=== PATIENT | male | born 1950 | race Caucasian/White ===

== ENCOUNTER 2016-09-20 13:39 | Day surgery (SDC) | payer MEDICARE, BC ==
[2016-09-15 15:36] VITALS: BMI 30.6
[~2016-09-20 13:39] MED LIST: SODIUM CHLORIDE 0.9% 1,000 ML IV SCH
[2016-09-20] MEDS ORDERED: ceFAZolin 2 GM in SODIUM CHLORIDE 0.9% 100 ML IVPB ONE (13:46)
[2016-09-20 14:24] LABS: INR 2.5 (<1.1); Prothrombin Time 23.8 sec (9.0-12.0)
[2016-09-20 14:26] LABS: Basophils % (A) 0 %; CH 33.2; CHCM 37.2; Eosinophils # (A) 0.1 k/uL (0-0.7); Eosinophils % (A) 1 %; HCT 47.6 % (39.0-53.0); HDW 3.05; HGB 16.9 gm/dL (13.0-17.5); Hyperchromasia Slight; Luc # (Auto) 0.25; Luc % (Auto) 3; Lymphocytes # (A) 1.7 k/uL (1.0-4.8); Lymphocytes % (A) 21 %; MCH 31.7 pg (25.0-35.0); MCHC 35.4 g/dL (31.0-37.0); MCV 89.7 fL (80.0-100.0); Monocytes # (A) 0.6 k/uL (0-1.0); Monocytes % (A) 7 %; Neutrophils # (A) 5.4 k/uL (1.3-7.7); Neutrophils % (A) 68 %; RBC 5.31 m/uL (4.30-5.90); RDW 13.9 % (11.5-15.5); WBC (Perox) 7.98
[2016-09-20 14:27] LABS: Anion Gap 17 mmol/L; Blood Urea Nitrogen 25 mg/dL (9-20); Calcium 9.3 mg/dL (8.4-10.2); Carbon Dioxide 23 mmol/L (22-30); Chloride 99 mmol/L (98-107); Glucose 264 mg/dL (74-99); Non-African American GFR(MDRD) >60 (>60 ml/min/1.73 sqM); Potassium 4.3 mmol/L (3.5-5.1); Sodium 139 mmol/L (137-145)
[2016-09-20] MEDS ORDERED: INSULIN LISPRO (humaLOG) 300 UNIT/3 ML VIAL SQ ONE ×2 (14:34→16:57)
[2016-09-20 14:36] LABS: Glucose,Whole Blood 271 mg/dL (75-99)
[2016-09-20] MEDS ORDERED: SODIUM CHLORIDE 0.9% 1,000 ML IV ONE (14:58)
[2016-09-20] MEDS ORDERED: MIDAZOLAM 2 MG/2 ML VIAL ONE (15:01)
[2016-09-20] MEDS ORDERED: fentaNYL (PF) 50 MCG/ML 2 ML AMP ONE (15:01)
[2016-09-20] MEDS ORDERED: PROPOFOL 10 MG/ML 20 ML VIAL IV ONE (15:01)
[2016-09-20] MEDS ORDERED: LIDOCAINE 2% INJ 20 MG/ML SQ ONE (15:38)
[2016-09-20 15:50] LABS: Glucose,Whole Blood 207 mg/dL (75-99)
[2016-09-20] MEDS ORDERED: ACETAMINOPHEN TAB 325 MG TAB PO PRN (16:15)
[2016-09-20 16:37] VITALS: TEMP 98.1
--- NOTE | 2016-09-20 16:47 | PCN ---
DATE OF PROCEDURE: Mr. Ochoa was brought in for an AV junction ablation. He has atrial fibrillation with rapid ventricular response, severe cardiomyopathy and low biventricular pacing percentage is severe heart failure. PROCEDURE #1: ICD was interrogated and reprogrammed to VVI 40 beats per minute, ( ) therapy was turned off, rate response turned off. At the end of the procedure the ICD was then reprogrammed VVIR at 90 beats per minute, operate 130. Rate responsiveness turned on. VT zone detection at 40 beats. VT therapies were reprogrammed at the end of the procedure. Right groin was prepped and draped as per protocol. A long sheath was placed. IV antibiotics were administered. A 4 mm ablation catheter was used to map the His bundle area. Electrical cardioversion was performed, a 360-joule shock. AV node modification was performed. Junctional rhythm was obtained. Escape rhythm with complete heart block was noted at about 35 to 40 beats per minute at the end of the procedure. Successful modification of AV node was performed. The patient soon went back into atrial fibrillation. RESULT: 1. Successful AV junction modification with an escape rate of about 35 to 40 beats per minute. 2. Electrical cardioversion. 3. ICD interrogation with reprogramming pre-procedure. ICD interrogation with reprogramming post-procedure. PLAN: Ventricular pacing rate at 90 beats per minute for the next 2 to 3 weeks and then back to 60 beats per minute. Continue cardiac medications and diabetes management per Dr. Norris.
--- NOTE | 2016-09-20 16:47 | DS ---
DATE OF ADMISSION: 09/20/2016 DATE OF DISCHARGE: Mr. Elgin Ochoa underwent AV node modification successfully. He will be monitored overnight on telemetry. He will be discharged home tomorrow. Blood sugar levels were elevated recently, according to his , and I have called Dr. Norris, who will re-evaluate his diabetes medication regimen. His cardiac medications will remain unchanged upon discharge. He will follow up in the office in about 2 to 3 weeks for device reprogramming.
[2016-09-20 17:02] LABS: Glucose,Whole Blood 213 mg/dL (75-99)
[2016-09-20] MEDS ORDERED: WARFARIN 7.5 MG TAB PO SCH (20:15)
[2016-09-20] MEDS ORDERED: ACETAMINOPHEN IV (For NPO) 1,000 MG in EMPTY BAG 1 BAG IVPB ONE (20:15)
[2016-09-20] MEDS ORDERED: DIGOXIN 125 MCG TAB PO SCH (20:15)
[2016-09-20] MEDS: SACUBITRIL/VALSARTAN 24 MG-26 MG TABLET PO SCH (20:44)
[2016-09-20] MEDS: metFORMIN 850 MG TAB PO SCH (20:44)
[2016-09-20] MEDS: FUROSEMIDE 40 MG TAB PO SCH (20:44)
[2016-09-20 20:59] LABS: Glucose,Whole Blood 256 mg/dL (75-99)
[2016-09-21 00:34] VITALS: RESP 18
[2016-09-21] MEDS ORDERED: PANTOPRAZOLE 40 MG TABLET PO SCH (07:30)
[2016-09-21 08:15] LABS: Glucose,Whole Blood 218 mg/dL (75-99)
[2016-09-21 08:17] VITALS: PULSE 91
[2016-09-21] MEDS ORDERED: SPIRONOLACTONE 25 MG TAB PO SCH (09:00)
[2016-09-21] MEDS ORDERED: METOPROLOL SUCCINATE (ER) 50 MG TAB.ER.24H PO SCH (09:00)
[2016-09-21] MEDS ORDERED: TIMOLOL 0.5% OPHTH DROPS 5 ML BTL LEFT EYE SCH (09:00)
[2016-09-21] MEDS: SACUBITRIL/VALSARTAN 24 MG-26 MG TABLET PO SCH (09:33)
[2016-09-21] MEDS: FUROSEMIDE 40 MG TAB PO SCH (09:33)
[2016-09-21] MEDS: metFORMIN 850 MG TAB PO SCH (09:33)
[2016-09-21 11:54] VITALS: BP 112/78
--- NOTE | 2016-09-21 12:13 | PN ---
Jose is doing well. His groin has healed in. He denies any chest discomfort. No undue shortness of breath. His pulse rate is 90 beats a per minute. He is programmed to a ventricular rate of paced rate of 90 beats a minute. Blood pressure 112/78 mmHg, respirations normal. Heart sounds are normal. Breath sounds are normal. IMPRESSION: 1. Severe cardiomyopathy, nonischemic. 2. Severe heart failure. 3. Status post bi-V ICD. 4. Status post AV junction modification and underlying permanent atrial fibrillation. SUGGEST: Continue current medications. Follow up in the office in about 2 to 3 weeks for pacemaker reprogramming with the pacing rate and diabetes management.
[2016-09-21] MEDS ORDERED: WARFARIN 5 MG TAB PO SCH (18:00)
== END 2016-09-21 12:45 | disposition home or self-care (01) ==
LOC: CATHEP 13:39 → 2CATHESU 16:10 → CATHEP 09-21 12:45
PROVIDERS: ATTEND Internal Medicine Clinical Cardiac Electrophysiology
DX: I42.8 Other cardiomyopathies (principal); I50.22 Chronic systolic (congestive) heart failure; I48.1 Persistent atrial fibrillation; I47.2 Ventricular tachycardia; I45.10 Unspecified right bundle-branch block; I10 Essential (primary) hypertension; E11.9 Type 2 diabetes mellitus without complications; Z95.810 Presence of automatic (implantable) cardiac defibrillator; Z79.01 Long term (current) use of anticoagulants; Z79.84 Long term (current) use of oral hypoglycemic drugs; Z79.899 Other long term (current) drug therapy
CPT/HCPCS: 93650 ×2; 93283 ×2; 94760; 80048; 85025; 85610; C1894; C1769; C1893; C1733; J2001; J2250; J0690; J3010; J0131; J2704; 92960

== ENCOUNTER → 2016-12-24 | Outpatient (CLI) | payer MEDICARE, BC ==
--- NOTE | 2016-12-29 11:51 | P.ARTDOP ---
Arterial Doppler LOWER EXTREMITY ARTERIAL DOPPLER: DATE OF SERVICE: 12/24/2016 Reason for study: Leg pain. Doppler waveforms: Multiphasic bilaterally throughout. Pulse volume recording: Normal configuration. Pressure gradients: None. Ankle-brachial indices: Greater than 1 bilaterally. Toe pressures: 85 on the right, 78 on the left Impression: Normal study.
== END | disposition home or self-care (01) ==
LOC: RADUSWWP 12:10
PROVIDERS: ATTEND Internal Medicine
DX: M79.604 Pain in right leg (principal); M79.605 Pain in left leg
CPT/HCPCS: 93923

== ENCOUNTER → 2019-02-23 | Outpatient (CLI) | payer MEDICARE, BC ==
--- NOTE | 2019-02-23 13:25 | NM ---
EXAMINATION TYPE: NM bone 3 phase DATE OF EXAM: 02/23/2019 COMPARISON: NONE HISTORY: 69-year-old male with left ankle pain for one month. History of left ankle joint replacement in 2015 and left Achilles tendon repair 25 years ago. Technique: Triple phase bone scintigraphy was performed following the injection of 24.7 mCi Tc 99m M DP. Immediate images and 3 hours post injection images acquired. FINDINGS: Flow images show asymmetric hyperemia to the left ankle. Whole images show persistent intense uptake at the level of the ankle especially medially. Delayed images show focal intense tracer activity about the medial aspect of the expected distal tibi a partially marginating an area of photopenia probably relating to some type of prosthesis. IMPRESSION: 1. Three-phase bone scan abnormality centered at the left ankle, especially medially in the expected location of the distal tibia, partially marginating an area of photopenia, likely the patient's ankle prosthesis. 2. Further radiographic evaluation recommended. Underlying prosthetic loosening/infection not exclude d.
== END | disposition home or self-care (01) ==
LOC: RADNMMAIN 07:52
PROVIDERS: ATTEND Orthopaedic Surgery Foot and Ankle Surgery
DX: R93.6 Abnormal findings on diagnostic imaging of limbs (principal); M24.272 Disorder of ligament, left ankle
CPT/HCPCS: 78315; A9503

== ENCOUNTER → 2019-03-15 | Outpatient (CLI) | payer MEDICARE, BC ==
[2019-03-15 07:03] LABS: HCT 44.5 % (39.0-53.0); HGB 15.7 gm/dL (13.0-17.5); MCH 31.9 pg (25.0-35.0); MCHC 35.3 g/dL (31.0-37.0); MCV 90.3 fL (80.0-100.0); Mean Platelet Volume 8.6; Platelet Count 171 k/uL (150-450); RBC 4.93 m/uL (4.30-5.90); RDW 15.5 % (11.5-15.5); WBC 7.5 k/uL (3.8-10.6)
[2019-03-15 07:13] LABS: African American GFR (CKD) >90 (>60 ml/min/1.73 sqM); Blood Urea Nitrogen 34 mg/dL (9-20); C Reactive Protein 7.2 mg/L (<10.0)
[2019-03-15 08:18] LABS: Erythrocyte Sedimentation Rate 2 mm/hr (0-15)
--- NOTE | 2019-03-15 09:17 | CT ---
EXAMINATION TYPE: CT ankle LT wo/w con DATE OF EXAM: 03/15/2019 COMPARISON: Three-phase bone scan 02/23/2019. HISTORY: aftercare following joint replacement surgery CT DLP: 520 mGycm Automated exposure control for dose reduction was used. Three-D reconstructed images performed separately by the technologist on the computer are presented. No plain films at this location are available. CONTRAST: Performed without and with IV Contrast, patient injected with 100 mL of Isovue 300. FINDINGS: Calcification surrounds the proximal and distal Achilles tendon region. There is marked thickening th rough this region. There is a tibial talar prosthetic joint placed. There is some beam hardening artifact at the level o f the prosthesis. On coronal plane images there is a lucency extending from the medial portion of the prosthesis into t he metaphysis of the tibia compatible with a fracture. Example image series 8 image 18. No additional fractures are evident. Suspicious enhancement is not identified. IMPRESSION: 1. THERE APPEARS TO BE A FRACTURE EXTENDING FROM THE MEDIAL PORTION OF THE TIBIAL PROSTHESIS SUPERIOR LY INTO THE METADIAPHYSIS OF THE MEDIAL TIBIA. THIS IS NONDISPLACED ON THIS APPEARS TO CORRESPOND TO A THREE-PHASE BONE SCAN FINDINGS. PLAIN FILM CORRELATION COULD BE PERFORMED. 2. PROSTHESIS APPEARS INTACT WITHOUT SUSPICIOUS LUCENCY ADJACENT TO SUGGEST LOOSENING 3. OLD ACHILLES TENDON INJURY.
== END | disposition home or self-care (01) ==
LOC: RADCTMAIN 06:31
PROVIDERS: ATTEND Orthopaedic Surgery Foot and Ankle Surgery
DX: Z47.1 Aftercare following joint replacement surgery (principal); M24.272 Disorder of ligament, left ankle; Z96.662 Presence of left artificial ankle joint
CPT/HCPCS: 85652; 82565; 84520; 85027; 86140; 36415; 73702; Q9967

== ENCOUNTER 2019-10-25 08:13 | Day surgery (SDC) | payer MEDICARE, BC ==
[2019-10-22 16:00] VITALS: BMI 30.2
[~2019-10-25 08:13] MED LIST changes: +LACTATED RINGERS 1,000 ML IV SCH; +LIDOCAINE 1% 20 ML VIAL (10MG/ML) FOR IV START INTRADERMA PRN; -SODIUM CHLORIDE 0.9% 1,000 ML IV SCH
[2019-10-25 08:53] VITALS: RESP 16; TEMP 97.1
[2019-10-25 08:56] LABS: Glucose,Whole Blood 81 mg/dL (75-99)
[2019-10-25] MEDS ORDERED: DEXTROSE 50% SYRINGE 50 ML IVP ONE ×2 (09:05→09:45)
[2019-10-25 09:50] LABS: Glucose,Whole Blood 76 mg/dL (75-99)
[2019-10-25] MEDS ORDERED: LIDOCAINE 1% INJ 10MG/ML (20 ML MDV) ONE (09:51)
[2019-10-25] MEDS ORDERED: PROPOFOL 10 MG/ML 20 ML VIAL IV ONE (09:51)
[2019-10-25 10:39] LABS: Glucose,Whole Blood 76 mg/dL (75-99)
--- NOTE | 2019-10-25 10:44 | P.PCN ---
Date of Procedure: 10/25/19 Description of Procedure: Brief history: Patient is a pleasant 69-year-old male scheduled for an elective upper endoscopy as well as colonoscopy as a part of evaluation of GERD and rectal bleeding. Patient reports intermittent small amounts of rectal bleeding. He is on omeprazole for treatment of GERD. No family history of colon cancer. He believes last EGD and colonoscopy were approximately 10 years. Procedure performed: Esophagogastroduodenoscopy with biopsy Colonoscopy with polypectomy Estimated blood loss: Minimal. Preoperative diagnosis: GERD, rectal bleed, last colonoscopy approximately 10 years ago per his recollection Anesthesia: MAC Procedure: After informed consent was obtained from the patient was brought into the endoscopy unit and IV sedation was administered by anesthesia under continuous monitoring. Initially upper endoscopy was done. The Olympus GF 190 video endoscope was inserted into the mouth and esophagus intubated without any difficulty and was gradually advanced into the stomach and duodenum and carefully examined. The bulb and second part of the duodenum appeared normal, with biopsies taken. The scope was then withdrawn into the stomach adequately insufflated with air and upon careful examination the antrum and body, cardia and fundus appeared normal, except for some mild erythema in the antrum body suggestive of mild gastritis with biopsies taken. A few diminutive gastric polyps likely representing fundic gland polyps seen and biopsied. The scope was then withdrawn into the esophagus. The GE junction was located at 40 cm to the incisors, small 1 cm hiatal hernia noted. GE junction biopsied. It appeared regular with no erythema erosions or ulcerations. Rest of the esophagus appeared normal. Patient tolerated the procedure well. At this time the patient continued to remain sedation. Initial digital rectal examination was normal. Olympus CF 190 video colonoscope was then inserted into the rectum and gradually advanced to the cecum without any difficulty. Careful examination was performed as the scope was gradually being withdrawn. The prep was excellent. The cecum, ascending colon, transverse colon, descending colon, sigmoid colon and rectum appeared normal. Sessile 3 mm cecal polyp removed with cold snare polypectomy. Retroflexion was performed in the rectum and no lesions were noted, low-grade internal hemorrhoids noted. Patient tolerated the procedure well. Impression: 1. Mild gastritis antrum and body, biopsied. Biopsies of GE junction and duodenum. Small hiatal hernia. Gastric polyps (likely fundic gland polyps) biopsied. 2. Small cecal polyp removed with cold snare. Low-grade internal hemorrhoids. Recommendations: Findings of this examination were discussed with the patient as well as His . Okay to resume the diet. Okay to resume medications including warfarin today. Await pathology from biopsies and polypectomy. Would recommend repeat colonoscopy in 7 years given history of colon polyps.
[2019-10-25 10:46] VITALS: PULSE 69
[2019-10-25 10:57] LABS: Glucose,Whole Blood 75 mg/dL (75-99)
[2019-10-25 10:58] VITALS: BP 116/64
== END 2019-10-25 11:39 | disposition home or self-care (01) ==
LOC: ORWHC2ENDO 08:13
PROVIDERS: ATTEND Internal Medicine
DX: K29.50 Unspecified chronic gastritis without bleeding (principal); K31.7 Polyp of stomach and duodenum; D12.0 Benign neoplasm of cecum; K44.9 Diaphragmatic hernia without obstruction or gangrene; K64.8 Other hemorrhoids; K62.5 Hemorrhage of anus and rectum; I50.9 Heart failure, unspecified; E78.49 Other hyperlipidemia; I48.91 Unspecified atrial fibrillation; K21.9 Gastro-esophageal reflux disease without esophagitis; E11.9 Type 2 diabetes mellitus without complications; Z95.810 Presence of automatic (implantable) cardiac defibrillator; Z96.653 Presence of artificial knee joint, bilateral; Z79.02 Long term (current) use of antithrombotics/antiplatelets; Z79.4 Long term (current) use of insulin; Z79.899 Other long term (current) drug therapy
CPT/HCPCS: 88305; 45385; 43239; J2001; J2704

== ENCOUNTER → 2020-02-21 | Outpatient (CLI) | payer MEDICARE, BC ==
[2020-02-21 14:04] LABS: African American GFR (CKD) >90 (>60 ml/min/1.73 sqM); Anion Gap 12 mmol/L; Blood Urea Nitrogen 28 mg/dL (9-20); Calcium 9.7 mg/dL (8.4-10.2); Carbon Dioxide 22 mmol/L (22-30); Chloride 105 mmol/L (98-107); Cholesterol 228 mg/dL (<200); Glucose 210 mg/dL (74-99); HDL Cholesterol 34 mg/dL (40-60); Non-African American GFR(CKD) 86 (>60 ml/min/1.73 sqM); Potassium 4.6 mmol/L (3.5-5.1); Sodium 139 mmol/L (137-145); Triglycerides 433 mg/dL (<150)
--- NOTE | 2020-02-21 14:59 | CT ---
EXAMINATION TYPE: CT angio chest DATE OF EXAM: 02/21/2020 COMPARISON: NONE HISTORY: ascending aortic aneurysm, abnormal outside echo. CT DLP: 888.4 mGycm. Automated Exposure Control for Dose Reduction was Utilized. CONTRAST: CTA scan of the thorax is performed without and with IV Contrast, patient injected with 100 mL of Iso richa 370, pulmonary embolism protocol. 3-D reconstruction are created on independent workstation and r [employer]. FINDINGS: LUNGS: The lungs are grossly clear, there is no concerning parenchymal mass or nodule identified. T here is no pleural effusion or pneumothorax seen. The tracheobronchial tree is patent. MEDIASTINUM: There is satisfactory enhancement of the central pulmonary arteries. Main pulmonary bill ry measures 2.9 cm in diameter axial image 28. Adjacent ascending aorta measures up to 4.0 cm in diam eter. There is a bovine type arch which is normal variant. No aneurysm in the arch or descending aort a. Mild cardiomegaly with moderate biatrial and mild to moderate left ventricular dilatation. There i s multilead pacemaker/AICD. No pericardial effusion is seen. No suspicious thoracic adenopathy. No ao rtic dissection identified. OTHER: Small degree of bilateral subareolar gynecomastia. Liver is diffusely low dense consistent wit h fatty infiltration on noncontrast CT. Large right-sided lower pole nodule extending to the thyroid isthmus is felt present as there is low density and asymmetric prominence at this level. IMPRESSION: 1. Confirmation of ascending aortic aneurysm up to 4.0 cm. No extension into the arch descending aort a. 2. Cardiomegaly without acute pulmonary process. 3. There is suspected roughly 3 to 4 cm lower pole right thyroid nodule extending into isthmus, follo w-up thyroid ultrasound advised to better evaluate and characterize.
== END | disposition home or self-care (01) ==
LOC: RADCTMAIN 13:21
PROVIDERS: ATTEND Internal Medicine Clinical Cardiac Electrophysiology
DX: I71.2 Thoracic aortic aneurysm, without rupture (principal); I51.7 Cardiomegaly; E03.9 Hypothyroidism, unspecified; I10 Essential (primary) hypertension
CPT/HCPCS: 80061; 80048; 84443; 71275; 36415; Q9967

== ENCOUNTER → 2021-07-31 | Outpatient (CLI) | payer MEDICARE, BC ==
[2021-07-31 14:37] LABS: African American GFR (CKD) >90 (>60 ml/min/1.73 sqM); Blood Urea Nitrogen 25 mg/dL (9-20); Non-African American GFR(CKD) 80 (>60 ml/min/1.73 sqM)
--- NOTE | 2021-07-31 16:23 | CT ---
CT CHEST FOR PULMONARY EMBOLISM. EXAMINATION TYPE: CT angio chest DATE OF EXAM: 07/31/2021 INDICATION: Thoracic aortic aneurysm w/out rupture. Pt not reporting any issues CT DLP: 860.4 mGycm, Automated exposure control for dose reduction was used. CONTRAST: Patient injected with 100 mL of Isovue 370. COMPARISON: 02/21/2020 TECHNIQUE: CT of the chest is performed on a spiral scan at 2 mm thick sections. Study is performed with intravenous contrast timed for evaluation for pulmonary embolism. This will limit additional po rtions of the evaluation. 3-D MIP images reconstructed by the technologist are reviewed on the compu ter in the coronal and sagittal planes. FINDINGS: Ascending thoracic aorta tapers normally. The aortic arch is unremarkable. Descending thoracic aorta is unremarkable. No dissection is evident. No mediastinal or hilar adenopathy enlarged by CT criteria is evident. The ascending aorta diameter at the level of the main pulmonary artery is 4.0 cm. The main pulmonary artery diameter at the bifur cation is 2.9 cm. Lung windows are clear. Limited CT section through the upper abdomen are unremarkable. IMPRESSIONS: 1. No suspicious thoracic acute abnormality. 2. Mild aneurysmal dilatation of the ascending thoracic aorta at the level of main pulmonary artery s table at 4.0 cm.
== END | disposition home or self-care (01) ==
LOC: RADCTMAIN 13:51
PROVIDERS: ATTEND Internal Medicine Clinical Cardiac Electrophysiology
DX: I71.2 Thoracic aortic aneurysm, without rupture (principal)
CPT/HCPCS: 82565; 84520; 71275; 36415; Q9967

== ENCOUNTER 2022-05-09 10:28 | Observation (INO) | payer MEDICARE, BC ==
[2022-05-09 10:36] LABS: Glucose,Whole Blood 128 mg/dL (70-110)
--- NOTE | 2022-05-09 10:45 | ED ---
General Adult HPI - General Stated complaint: stroke Time Seen by Provider: 05/09/22 10:33 Source: patient, EMS, RN notes reviewed Mode of arrival: EMS Limitations: no limitations - History of Present Illness Initial comments: Patient is a pleasant 72-year-old male presenting to the emergency department with concern for stroke. Patient is a poor historian and is unclear on timing. Unclear last known well. Patient states symptoms may have started last night. Patient states he may have had some symptoms around 11 PM when he went to bed however definitely noticed some this morning when he woke up around 8 AM. EMS did report right-sided facial droop and some slurred speech. Patient feels his symptoms have resolved. During evaluation EMS is present and agrees with this. Patient recently diagnosed with COVID-19 infection and is on antiviral. - Related Data Home Medications Medication Instructions Recorded Confirmed Furosemide [Lasix] 40 mg PO BID 01/28/15 10/25/19 Omeprazole [PriLOSEC] 20 mg PO AC-BRKFST 01/28/15 10/25/19 Timolol [Betimol 0.5% Ophth Soln] 1 drop LEFT EYE DAILY 06/26/15 10/25/19 Warfarin [Coumadin] 7.5 mg PO TUSA 06/08/16 10/25/19 Warfarin Sodium 10 mg PO SUMOWETHFR 06/17/16 10/25/19 Metoprolol Succinate [Toprol XL] 50 mg PO QAM 08/09/16 10/25/19 Digoxin [Lanoxin] 125 mcg PO HS 09/15/16 10/25/19 Cannabidiol (Cbd) [Epidiolex] 1 dose TOPICAL DAILY PRN 10/22/19 10/25/19 Empagliflozin [Jardiance] 25 mg PO HS 10/22/19 10/25/19 Enoxaparin [Lovenox] 100 mg SQ BID 10/22/19 10/25/19 Ergocalciferol (Vitamin D2) 50,000 unit PO ROSEN 10/22/19 10/25/19 [Drisdol] Fenofibrate Nanocrystallized 48 mg PO DAILY 10/22/19 10/25/19 [Fenofibrate] Insulin Glargine [Lantus] 50 unit SQ DAILY 10/22/19 10/25/19 Liraglutide [Victoza 2-Ruddy] 1.8 mg SQ DAILY 10/22/19 10/25/19 Sacubitril/Valsartan [Entresto 97 1 each PO BID 10/22/19 10/25/19 mg-103 mg Tablet] Vitamin B Complex 1 each PO DAILY 10/22/19 10/25/19 metFORMIN HCL [Glucophage] 1,000 mg PO BID 10/22/19 10/25/19 Previous Rx's Medication Instructions Recorded Spironolactone 50 mg PO DAILY #90 tab 08/13/16 Allergies Allergy/AdvReac Type Severity Reaction Status Date / Time No Known Allergies Allergy Verified 05/09/22 10:39 Review of Systems ROS Statement: Those systems with pertinent positive or pertinent negative responses have been documented in the HPI. ROS Other: All systems not noted in ROS Statement are negative. Constitutional: Denies: fever Eyes: Denies: eye pain ENT: Denies: ear pain Respiratory: Reports: as per HPI, cough Cardiovascular: Denies: chest pain Endocrine: Denies: fatigue Gastrointestinal: Denies: abdominal pain Genitourinary: Denies: dysuria Musculoskeletal: Denies: back pain Skin: Denies: rash Neurological: Reports: as per HPI, weakness. Denies: headache, confusion Past Medical History Past Medical History: Atrial Fibrillation, Heart Failure, Diabetes Mellitus, Eye Disorder, GERD/Reflux, Hyperlipidemia, Osteoarthritis (OA), Vascular Disorder Additional Past Medical History / Comment(s): L eye problem-hardening of some kind. History of Any Multi-Drug Resistant Organisms: None Reported Past Surgical History: Adenoidectomy, AICD, Back Surgery, Cardiac Ablation, Heart Catheterization, Hernia Repair, Joint Replacement, Orthopedic Surgery, Tonsillectomy Additional Past Surgical History / Comment(s): 05/2016 AICD UPGRADE, 01/2015 GENERATOR CHANGE, EP STUDY AND ABLATION , CARDIOVERSIONS, DFTS.,L ACHILLES TENDON REPAIR, [place] TOTAL KNEES, TOTAL LEFT ANKLE, EGD/COLONOSCOPY, left total ankle replacement,laminectomy Past Anesthesia/Blood Transfusion Reactions: No Reported Reaction Additional Past Anesthesia/Blood Transfusion Reaction / Comment(s): Pt has never received blood. Type of Cardiac Device: AICD Device Placement Date:: 2007-DEVICE/2014-BATTERY/2015-UPGRADE Past Psychological History: Anxiety Additional Psychological History / Comment(s): . Past Alcohol Use History: Occasional Past Drug Use History: None Reported Additional Drug Use History / Comment(s): cbd oil - Past Family History Mother Family Medical History: Cancer Additional Family Medical History / Comment(s): . Father Family Medical History: Myocardial Infarction ([place]) Additional Family Medical History / Comment(s): FATHER OF A SC AT THE AGE OF 66YRS. Brother(s) Family Medical History: No Reported History Daughter(s) Family Medical History: No Reported History Son(s) Family Medical History: No Reported History General Exam General appearance: alert, in no apparent distress Head exam: Present: atraumatic Eye exam: Present: normal appearance, PERRL, EOMI ENT exam: Present: normal oropharynx Neck exam: Present: normal inspection Respiratory exam: Present: normal lung sounds bilaterally Cardiovascular Exam: Present: regular rate, normal rhythm GI/Abdominal exam: Present: soft. Absent: tenderness Extremities exam: Present: normal inspection Neurological exam: Present: alert, oriented X3, CN II-XII intact. Absent: motor sensory deficit Expanded Neurological exam: Present: protecting the airway Patient oriented to: Present: person, place, time Speech: Present: fluid speech Cranial nerves: EOM's Intact: Normal, Facial Sensation: Normal Sensory exam: Upper Extremity Light Touch: Normal, Lower Extremity Light Touch: Abnormal Right, Abnormal Left (Chronic from neuropathy) Motor strength exam: RUE: 5, LUE: 5, RLE: 5, LLE: 5 Eye Response: (4) open spontaneously Motor Response: (6) obeys commands Verbal Response: (5) oriented Psychiatric exam: Present: normal affect, normal mood Skin exam: Present: normal color Course Vital Signs 05/09/22 05/09/22 10:30 11:16 Temperature 98.5 F Pulse Rate 69 65 Respiratory 18 18 Rate Blood Pressure 115/77 126/79 O2 Sat by Pulse 95 95 Oximetry EKG Findings - EKG Comments: EKG Findings:: Paced rhythm 369. QRS 173. QT 449. QTC 469. Superior axis. Wide complex QRS. Inferior T wave inversion. Medical Decision Making - Medical Decision Making Patient reevaluated. Patient and family updated. Case was discussed with Dr. Cheek, who will admit his patient. Neurology will be placed on consult. Patient remained symptom-free at this time. Family reports that patient did have an episode of mild speech problems lasting less than 1 minute while in the emergency department. - Lab Data Result diagrams: 05/09/22 10:45 05/09/22 10:45 Lab Results 05/09/22 05/09/22 05/09/22 Range/Units 10:33 10:45 10:45 WBC 5.9 (3.8-10.6) k/uL RBC 5.28 (4.30-5.90) m/uL Hgb 17.8 H (13.0-17.5) gm/dL Hct 50.7 (39.0-53.0) % MCV 96.1 (80.0-100.0) fL MCH 33.6 (25.0-35.0) pg MCHC 35.0 (31.0-37.0) g/dL RDW 14.5 (11.5-15.5) % Plt Count 123 L (150-450) k/uL MPV 8.7 PT 19.6 H (9.0-12.0) sec INR 1.9 H (<1.2) APTT 33.1 H (22.0-30.0) sec Sodium (137-145) mmol/L Potassium (3.5-5.1) mmol/L Chloride (98-107) mmol/L Carbon Dioxide (22-30) mmol/L Anion Gap mmol/L BUN (9-20) mg/dL Creatinine (0.66-1.25) mg/dL Est GFR (CKD-EPI)AfAm (>60 ml/min/1.73 sqM) Est GFR (CKD-EPI)NonAf (>60 ml/min/1.73 sqM) Glucose (74-99) mg/dL POC Glucose (mg/dL) 128 H (70-110) mg/dL POC Glu Residential [employer] Unit Installer ID Martin, Oneal Calcium (8.4-10.2) mg/dL Total Bilirubin (0.2-1.3) mg/dL AST (17-59) U/L ALT (4-49) U/L Alkaline Phosphatase (38-126) U/L Total Protein (6.3-8.2) g/dL Albumin (3.5-5.0) g/dL 05/09/22 Range/Units 10:45 WBC (3.8-10.6) k/uL RBC (4.30-5.90) m/uL Hgb (13.0-17.5) gm/dL Hct (39.0-53.0) % MCV (80.0-100.0) fL MCH (25.0-35.0) pg MCHC (31.0-37.0) g/dL RDW (11.5-15.5) % Plt Count (150-450) k/uL MPV PT (9.0-12.0) sec INR (<1.2) APTT (22.0-30.0) sec Sodium 138 (137-145) mmol/L Potassium 4.1 (3.5-5.1) mmol/L Chloride 103 (98-107) mmol/L Carbon Dioxide 21 L (22-30) mmol/L Anion Gap 14 mmol/L BUN 21 H (9-20) mg/dL Creatinine 0.88 (0.66-1.25) mg/dL Est GFR (CKD-EPI)AfAm >90 (>60 ml/min/1.73 sqM) Est GFR (CKD-EPI)NonAf 87 (>60 ml/min/1.73 sqM) Glucose 113 H (74-99) mg/dL POC Glucose (mg/dL) (70-110) mg/dL POC Glu Residential [employer] Unit Installer ID Calcium 8.8 (8.4-10.2) mg/dL Total Bilirubin 1.0 (0.2-1.3) mg/dL AST 34 (17-59) U/L ALT 24 (4-49) U/L Alkaline Phosphatase 57 (38-126) U/L Total Protein 6.8 (6.3-8.2) g/dL Albumin 4.3 (3.5-5.0) g/dL - Radiology Data Radiology results: report reviewed (CT brain reveals no acute abnormality) Critical Care Time Critical Care Time: Yes Total Critical Care Time: 32 Disposition Clinical Impression: Transient cerebral ischemia Disposition: ADMITTED IP TO THIS HOSP Is patient prescribed a controlled substance at d/c from ED?: No Referrals: Mckinley Cheek MD [Primary Care Provider] - 1-2 days Time of Disposition: 11:36
[2022-05-09 11:04] LABS: ALT 24 U/L (4-49); AST 34 U/L (17-59); African American GFR (CKD) >90 (>60 ml/min/1.73 sqM); Albumin 4.3 g/dL (3.5-5.0); Alkaline Phosphatase 57 U/L (38-126); Anion Gap 14 mmol/L; Blood Urea Nitrogen 21 mg/dL (9-20); Calcium 8.8 mg/dL (8.4-10.2); Carbon Dioxide 21 mmol/L (22-30); Chloride 103 mmol/L (98-107); Glucose 113 mg/dL (74-99); Non-African American GFR(CKD) 87 (>60 ml/min/1.73 sqM); Potassium 4.1 mmol/L (3.5-5.1); Sodium 138 mmol/L (137-145); Total Protein 6.8 g/dL (6.3-8.2)
[2022-05-09 11:15] LABS: INR 1.9 (<1.2); Partial Thromboplastin Time 33.1 sec (22.0-30.0); Prothrombin Time 19.6 sec (9.0-12.0)
[2022-05-09 11:21] LABS: HCT 50.7 % (39.0-53.0); HGB 17.8 gm/dL (13.0-17.5); MCH 33.6 pg (25.0-35.0); MCV 96.1 fL (80.0-100.0); Mean Platelet Volume 8.7; Platelet Count 123 k/uL (150-450); RBC 5.28 m/uL (4.30-5.90); RDW 14.5 % (11.5-15.5); WBC 5.9 k/uL (3.8-10.6)
--- NOTE | 2022-05-09 11:23 | CT ---
EXAMINATION TYPE: CT brain wo con for TPA DATE OF EXAM: 05/09/2022 HISTORY: STROKE. Acute onset neuro deficit. CT DLP: 1096.5 mGycm. Automated Exposure Control for Dose Reduction was Utilized. TECHNIQUE: CT scan of the head is performed without contrast. COMPARISON: None. FINDINGS: There is no acute intracranial hemorrhage or midline shift identified. There is mild diff use ventricular and sulcal prominence consistent with diffuse age-related cerebral atrophy. There is mild to moderate low-attenuation in the periventricular white matter consistent with chronic small v essel ischemic change. The globes are intact and the visualized sinuses are clear. Prominent soft tissue density consistent with cerumen in the deep right external auditory canal. Nasal septum is dev iated to left of midline. IMPRESSION: No acute intracranial hemorrhage or midline shift. There is mild diffuse age-related ce rebral atrophy and mild to moderate chronic small vessel ischemic change noted.
--- NOTE | 2022-05-09 11:28 | CT ---
EXAMINATION TYPE: CT angio head neck DATE OF EXAM: 05/09/2022 HISTORY: STROKE COMPARISON: None. CT DLP: 700.2 mGycm. Automated Exposure Control for Dose Reduction was Utilized. TECHNIQUE: CTA scan of the head and neck is performed with IV Contrast, patient injected with 65 mL of Isovue 370, axial images are obtained, coronal and sagittal reformatted images are reviewed. 3D re constructed images are created on an independent workstation and reviewed. FINDINGS: Carotid/Vascular Structures: Three-vessel origin from the aortic arch. Mild to moderate peripheral pl aque right carotid bulb extending into proximal internal carotid artery. Mild peripheral plaque left carotid bulb. No significant focal stenosis in the common or internal carotid arteries bilaterally. P atent external carotid arteries bilaterally without significant stenosis. Codominant vertebral arteries patent to basilar junction. No significant focal stenosis or aneurysm i s seen. Patent bilateral posterior indicating arteries are present. No significant focal stenosis or aneurysm in the posterior circulation. Patent anterior communicating artery is identified. No significant focal stenosis or aneurysm in the anterior circulation. Other: Coronary artery calcification is present. Partial visualization of pacemaker leads. Heterogene ous solid lower pole right thyroid nodule extending to isthmus is likely present. Nonemergent follow- up thyroid ultrasound is advised. Grade 1 anterolisthesis C2 on C3, C3 on C4, C4 on C5. Grade 2 retrolisthesis C5 on C6. [id number] johanna disc space narrowing C4-C5 level. Severe disc space narrowing C5-C6 level. Moderate disc space n arrowing C6-C7 level IMPRESSION: No significant abnormality is seen. NASCET criteria was used in interpretation of this exam?
[2022-05-09] MEDS ORDERED: ASPIRIN 325 MG TAB PO STA (11:37)
[2022-05-09 11:51] LABS: Band Neutrophils % 1 %; Basophils # (M) 0.06 k/uL (0-0.2); Lymphocytes # (M) 0.89 k/uL (1.0-4.8); Metamyelocytes # (M) 0.12 k/uL (0); Metamyelocytes % 2 %; Monocytes # (M) 1.42 k/uL (0-1.0); Neutrophils % (M) 58 %; Nucleated Red Blood Cells 0 /100 WBC (0-0); Total Cells Counted 200
[2022-05-09 11:56] LABS: RBC Morphology Normal
--- NOTE | 2022-05-09 14:00 | XR ---
EXAMINATION TYPE: XR chest 2V DATE OF EXAM: 05/09/2022 1:45 PM COMPARISON: THIS EXAM WAS READ DURING PACS DOWNTIME, NO PRIORS AVAILABLE. TECHNIQUE: XR chest 2V Frontal and lateral views of the chest. CLINICAL INDICATION:Male, 72 years old with history of altered mental status; FINDINGS: Lungs/Pleura: There is no evidence of pleural effusion, focal consolidation, or pneumothorax. Mildly elevated left diaphragm. Pulmonary vascularity: Unremarkable. Heart/mediastinum: Cardiomediastinal silhouette is enlarged and stable. Three lead cardiac conduction device overlying the left hemithorax with lead tips projecting over the right ventricle, right atriu m and coronary sinus. Musculoskeletal: Degenerative changes of the shoulder joints. IMPRESSION: 1. No acute cardiopulmonary disease/process. 2. Cardiomegaly without evidence of overt heart failure.
[2022-05-09] MEDS: SODIUM CHLORIDE 0.9% 1,000 ML IV SCH (16:22)
[2022-05-09] MEDS ORDERED: WARFARIN 10 MG TAB PO SCH (18:00)
[2022-05-09 19:17] LABS: Glucose,Whole Blood 114 mg/dL (70-110)
[2022-05-09] MEDS: SACUBITRIL/VALSARTAN 97 MG-103 MG TABLET PO SCH (21:04)
[2022-05-09] MEDS: DIGOXIN 125 MCG TAB PO SCH (21:04)
[2022-05-09] MEDS: FAMOTIDINE 20 MG TAB PO SCH (21:06)
[2022-05-09] MEDS: NIRMATRELVIR PO SCH (21:07)
[2022-05-09] MEDS: [UNRECOGNIZED DRUG - OTHER] PO SCH (21:07)
[2022-05-09] MEDS: RITONAVIR PO SCH (21:07)
[2022-05-09] MEDS: GABAPENTIN 400 MG CAP PO SCH (22:55)
--- NOTE | 2022-05-09 23:15 | HP ---
HISTORY AND PHYSICAL A 72-year-old male came to the emergency room with possible stroke, started last night. about 11 p.m., went to the bed, however, definitely this morning, woke up around 8 a.m. He had some facial droop, some slurred speech. His symptoms have resolved. He was admitted for possible TIA, recently diagnosed with COVID-19, and is on antiviral. Home medicines Lasix 40 b.i.d., omeprazole 20 daily, timolol 1 drop each eye daily, Coumadin 7.5 mg Tuesdays and Saturdays and 10 mg Tuesday, Tuesday, Tuesday, , Tuesday, metoprolol-XL 50 daily, dose topically daily, Jardiance 25 daily, Lovenox 100 mg subcutaneous b.i.d., fenofibrate 48 mg daily, Lantus 50 units subcutaneous daily, Victoza 1.8 subcutaneous daily, Entresto 97/103 one b.i.d., vitamin B daily, metformin 1000 b.i.d. REVIEW OF SYSTEM: A 14-point review of system is otherwise negative except for weakness and fatigue. symptoms mostly resolved at this time. PAST MEDICAL HISTORY: Atrial fibrillation, heart failure, diabetes mellitus, , GERD, dyslipidemia, osteoarthritis, disorder, tonsillectomy, AICD, back surgery, cardiac ablation, heart catheterization, hernia repair, joint replacement, , tonsillectomy, cardioversion. FAMILY HISTORY: Mother with cancer. Father with myocardial infarction. daughter sounds negative. PHYSICAL EXAMINATION: HEENT: Normocephalic, atraumatic. Pupils equal, round, reactive. CARDIOVASCULAR: S1, S2. LUNGS: Clear. GI: Soft. HEMATOLOGY: Negative for Homans. NEUROLOGIC: 4/5 strength x4 extremities. SKIN: Warm, dry, intact. Fluent speech. EKG sinus rhythm. ASSESSMENT: 1. Probable transient ischemic attack. 2. Polycythemia. 3. Thrombocytopenia. 4. Mild dehydration with elevated BUN of 21, and creatinine 0.88. CAT scan shows no acute abnormality. We will get Neurology involved, possibly get MRI of the brain if possible with a cardiac device. Resume home medicines. MMODL / IJN: [id number] /
[2022-05-10] MEDS ORDERED: ZOLPIDEM 5 MG TAB PO STA (00:47)
[2022-05-10] MEDS: SODIUM CHLORIDE 0.9% 1,000 ML IV SCH ×4 (03:10→23:41)
[2022-05-10 06:45] LABS: INR 1.7 (<1.2); Prothrombin Time 17.3 sec (9.0-12.0)
[2022-05-10 07:50] LABS: Glucose,Whole Blood 123 mg/dL (70-110)
--- NOTE | 2022-05-10 09:32 | CA ---
Transthoracic Echo Report Name: Jose Ochoa Age: 72 Gender: M : 1950 Exam Date: 05/10/2022 08:21 Exam Location: [facility] Ht (in): 72 Wt (lb): 215 Ordering Physician: Dipak Bruno DO Attending/Referring Phys: Dot Compliance Coordinator Salena Hu RDCS Procedure CPT: Indications: Thrombus Cardiac Hx: AICD Technical Quality: Fair Contrast 1: Total Dose (mL): Contrast 2: Total Dose (mL): MEASUREMENTS (Male / Female) Normal Values 2D ECHO LV Diastolic Diameter PLAX 6.5 cm 4.2 - 5.9 / 3.9 - 5.3 cm LV Systolic Diameter PLAX 5.1 cm IVS Diastolic Thickness 1.1 cm 0.6 - 1.0 / 0.6 - 0.9 cm LVPW Diastolic Thickness 1.2 cm 0.6 - 1.0 / 0.6 - 0.9 cm LV Relative Wall Thickness 0.4 RV Internal Dim ED PLAX 3.7 cm LA Systolic Diameter LX 4.1 cm 3.0 - 4.0 / 2.7 - 3.8 cm LA Volume 103.0 cm??? 18 - 58 / 22 - 52 cm??? M-MODE Aortic Root Diameter MM 4.3 cm MV E Point Septal Separation 2.2 cm AV Cusp Separation MM 1.6 cm DOPPLER AV Peak Velocity 119.4 cm/s AV Peak Gradient 5.7 mmHg AI Peak Velocity 417.7 cm/s AI Peak Gradient 69.8 mmHg AI Pressure Half Time 799.8 ms MV Area PHT 4.0 cm??? MV Deceleration Time 156.2 ms MV E' Velocity 3.3 cm/s TR Peak Velocity 248.2 cm/s TR Peak Gradient 24.6 mmHg Right Ventricular Systolic Press 28.4 mmHg FINDINGS Left Ventricle Moderately increased left ventricular diastolic diameter. Left ventricular ejection fraction is estimated at 25-30 %. Borderline left ventricular hypertrophy. Severely reduced global left ventricular systolic function. Right Ventricle Moderate right ventricular dilatation. Right ventricular systolic pressure within normal limits. Right Atrium Normal right atrial size. Left Atrium Mildly increased left atrial diameter. Severely increased left atrial volume. Mildly increased left atrial area. Mitral Valve Mild mitral regurgitation. No mitral stenosis, regurgitation or prolapse. Aortic Valve Trileaflet aortic valve. No aortic stenosis. [id number]-th-bzhideha aortic regurgitation. Tricuspid Valve Mild tricuspid regurgitation. Pulmonic Valve Trace pulmonic regurgitation. Pericardium Normal pericardium. No pericardial effusion. Aorta Moderate aortic dilatation at the level of the sinotubular junction. CONCLUSIONS Reduced LV systolic function dilated left atrium with mild MR Atypical department Previewed by: Dr. Ike Barrett MD (Electronically Signed) Final Date: 10 May 2022 09:31
[2022-05-10 09:58] LABS: Chol/HDL Ratio 5.47 Ratio; LDL Cholesterol,Calculated 115.8 mg/dL (0.0-131.0)
[2022-05-10] MEDS: ASPIRIN 325 MG TAB PO SCH (10:20)
[2022-05-10] MEDS: SACUBITRIL/VALSARTAN 97 MG-103 MG TABLET PO SCH ×2 (10:20→20:47)
[2022-05-10] MEDS: GABAPENTIN 400 MG CAP PO SCH ×3 (10:20→20:47)
[2022-05-10] MEDS: FENOFIBRATE 54 MG TAB PO SCH (10:20)
[2022-05-10] MEDS: FAMOTIDINE 20 MG TAB PO SCH ×2 (10:20→20:47)
[2022-05-10] MEDS: PANTOPRAZOLE 40 MG TABLET PO SCH (10:20)
[2022-05-10] MEDS: TIMOLOL 0.5% OPHTH DROPS 5 ML BTL LEFT EYE SCH (10:20)
[2022-05-10] MEDS: METOPROLOL SUCCINATE (ER) 50 MG TAB.ER.24H PO SCH (10:21)
[2022-05-10] MEDS: [UNRECOGNIZED DRUG - OTHER] PO SCH ×2 (10:22→20:15)
[2022-05-10] MEDS: NIRMATRELVIR PO SCH ×2 (10:22→20:15)
[2022-05-10] MEDS: RITONAVIR PO SCH ×2 (10:22→20:15)
--- NOTE | 2022-05-10 10:55 | P.CNNES ---
History of Present Illness Consult date: 05/10/22 Requesting physician: Preeti Braun Reason for Consult: tia History of Present Illness: This is a 72-year-old gentleman with history of atrial fibrillation that is post cardiac ablation on Coumadin, heart failure status status post AICD diabetes mellitus, hyperlipidemia for concern of some slurred speech. It seems that the patient the symptoms were unknown of exact timing about possibly had symptoms at 11 PM prior to going to bed on 05/08/2022 but woke up definitely noticed the symptoms. He called EMS and they felt he has right facial droop. He feels slurred speech is very subtle. Denies of any focal weakness, new numbness, visual disturbance. Patient is on Coumadin for atrial fibrillation and feels for most part his INR is around 2.5 to 3.. Patient is also on digoxin. Patient has recent diagnosis of COVID-19 infection and is on antiviral. Some of the workup during this hospital visit consisted of: CT of the head is reported as no acute intracranial hemorrhage or midline shift. There is mild diffuse age-related cerebral atrophy and mild to moderate chronic small vessel ischemic changes noted. I personally reviewed the CT head and I agree there is no acute or subacute ischemia and there is no intracranial hemorrhage or that was able to appreciate CT angiography of the head and neck is reported as no significant abnormality is seen. 2-D echo was reported as reduced left ventricle systolic function. Dilated left atrium with mild mitral regurgitation. Moderate aortic dilation at the level of the sinal bulbar junction. Left atrium is mildly increased left atrial diameter. Severely increased left atrial volume. Initial serum glucose is 113 Lipid panel as triglyceride 128, cholesterol 173, LDL of 115 and HDL of 31. TSH is 0.993. Initial INR is 1.9, PTT is 33.1 and PT is 19.6. Repeated INR is 1.7. NO IV tpa since the symptoms has resolved per ED note and risk outweigh the benefit especially with use of anticoagulation. Review of Systems Review of system: The 12 point system was reviewed and apparent positive and negative per HPI. Past Medical History Past Medical History: Atrial Fibrillation, Heart Failure, Diabetes Mellitus, Eye Disorder, GERD/Reflux, Hyperlipidemia, Osteoarthritis (OA), Vascular Disorder Additional Past Medical History / Comment(s): L eye problem-hardening of some kind. History of Any Multi-Drug Resistant Organisms: None Reported Past Surgical History: Adenoidectomy, AICD, Back Surgery, Cardiac Ablation, Heart Catheterization, Hernia Repair, Joint Replacement, Orthopedic Surgery, Tonsillectomy Additional Past Surgical History / Comment(s): 05/2016 AICD UPGRADE, 01/2015 GENERATOR CHANGE, EP STUDY AND ABLATION , CARDIOVERSIONS, DFTS.,L ACHILLES TENDON REPAIR, [place] TOTAL KNEES, TOTAL LEFT ANKLE, EGD/COLONOSCOPY, left total ankle replacement,laminectomy Past Anesthesia/Blood Transfusion Reactions: No Reported Reaction Additional Past Anesthesia/Blood Transfusion Reaction / Comment(s): Pt has never received blood. Type of Cardiac Device: AICD Device Placement Date:: 2007-DEVICE/2014-BATTERY/2015-UPGRADE Past Psychological History: Anxiety Additional Psychological History / Comment(s): . Past Alcohol Use History: Occasional Past Drug Use History: None Reported Additional Drug Use History / Comment(s): cbd oil - Past Family History Mother Family Medical History: Cancer Additional Family Medical History / Comment(s): . Father Family Medical History: Myocardial Infarction (NH) Additional Family Medical History / Comment(s): FATHER OF A NH AT THE AGE OF 66YRS. Brother(s) Family Medical History: No Reported History Daughter(s) Family Medical History: No Reported History Son(s) Family Medical History: No Reported History Medications and Allergies Home Medications Medication Instructions Recorded Confirmed Type Furosemide [Lasix] 40 mg PO DAILY 01/28/15 05/09/22 History Omeprazole [PriLOSEC] 20 mg PO DAILY 01/28/15 05/09/22 History Timolol [Betimol 0.5% Ophth Soln] 1 drop LEFT EYE DAILY 06/26/15 05/09/22 History Warfarin Sodium 10 mg PO SUTUTH 06/17/16 05/09/22 History Metoprolol Succinate [Toprol XL] 25 mg PO DAILY 08/09/16 05/09/22 History Spironolactone 50 mg PO DAILY #90 tab 08/13/16 05/09/22 Rx Digoxin [Lanoxin] 125 mcg PO HS 09/15/16 05/09/22 History Empagliflozin [Jardiance] 25 mg PO HS 10/22/19 05/09/22 History Ergocalciferol (Vitamin D2) 50,000 unit PO ROSEN 10/22/19 05/09/22 History [Drisdol] Fenofibrate Nanocrystallized 48 mg PO DAILY 10/22/19 05/09/22 History [Fenofibrate] Sacubitril/Valsartan [Entresto 97 1 tab PO BID 10/22/19 05/09/22 History mg-103 mg Tablet] metFORMIN HCL [Glucophage] 1,000 mg PO BID 10/22/19 05/09/22 History Baclofen 10 mg PO DAILY PRN 05/09/22 05/09/22 History Gabapentin [Neurontin] 400 mg PO TID 05/09/22 05/09/22 History Insulin Glargine,Hum.rec.anlog 50 units SQ DAILY 05/09/22 05/09/22 History [Lantus Solostar Pen] Liraglutide [Victoza 3-Ruddy] 1.8 mg SQ DAILY 05/09/22 05/09/22 History Nirmatrelvir/Ritonavir [Paxlovid 1 dose PO BID 05/09/22 05/09/22 History 2X150 mg-100 mg (Eua)] Warfarin [Coumadin] 7.5 mg PO MOWEFRSA 05/09/22 05/09/22 History Allergies Allergy/AdvReac Type Severity Reaction Status Date / Time pravastatin AdvReac Join pain Verified 05/09/22 13:51 and Muscle cramps Physical Examination - Vital Signs Vital Signs: Vital Signs Temp Pulse Pulse Resp BP BP BP 05/10/22 07:00 98.0 F 70 18 143/66 05/10/22 02:00 98.3 F 72 70 18 122/72 119/76 05/09/22 23:00 70 20 128/74 05/09/22 19:00 69 20 115/70 05/09/22 13:00 70 20 117/74 05/09/22 12:10 70 19 116/77 05/09/22 12:00 70 21 120/74 05/09/22 11:40 70 17 107/64 05/09/22 11:38 66 18 119/74 05/09/22 11:20 70 21 122/75 05/09/22 11:16 65 18 126/79 05/09/22 10:30 98.5 F 69 18 115/77 Pulse Ox 05/10/22 07:00 95 05/10/22 02:00 95 05/09/22 23:00 98 05/09/22 19:00 97 05/09/22 13:00 95 05/09/22 12:10 95 05/09/22 12:00 96 05/09/22 11:40 95 05/09/22 11:38 95 05/09/22 11:20 97 05/09/22 11:16 95 05/09/22 10:30 95 Intake and Output 05/09/22 05/10/22 05/10/22 22:59 06:59 14:59 Other: # Voids 1 GENERAL: The patient is lying in bed and is not in acute distress. CHEST: The heart rate is regular rate rhythm. No murmurs to auscultation. LUNG: Clear to auscultation bilaterally no wheezing noted throughout. Not labored breathing. ABDOMEN/GI: Bowel sounds present in all 4 quadrants. No tenderness to palpation throughout. NEUROLOGICAL: Higher mental function: The patient is awake, alert, oriented to self, place and time. Patient is following commands. No aphasia and no neglect. Cranial nerves: The pupils are round, equal and reactive to light and accommodation. Visual campbell are full to confrontation throughout. Extraocular movement is intact no nystagmus is noted. Facial sensation is normal to touch throughout. The facial strength is left nasolabial flattening (he looked himself with use of cameraphone and he does not appreciated it as new). Hearing is mildly decreased bilaterally to hand rub. Tongue is midline and moved [id number] without any difficulty. No dysarthria is noted. Shoulder shrug is normal bilaterally. Motor: Gait is deferred. The strength is 5 over 5 throughout. Normal tone and bulk. Cerebellum: Normal finger to nose bilaterally. Sensation: Sensation is normal to touch throughout. Reflexes (right/left): 1+ throughout. Plantars are downgoing bilaterally. Results - Laboratory Findings CBC and BMP: 05/09/22 10:45 05/09/22 10:45 Abnormal Lab Findings: Abnormal Labs 05/09/22 05/09/22 05/09/22 10:33 10:45 10:45 Hgb 17.8 H Plt Count 123 L Lymphocytes # (Manual) 0.89 L Monocytes # (Manual) 1.42 H Metamyelocytes # (Man) 0.12 H PT 19.6 H INR 1.9 H APTT 33.1 H Carbon Dioxide BUN Glucose POC Glucose (mg/dL) 128 H HDL Cholesterol 05/09/22 05/09/22 05/10/22 10:45 19:15 06:01 Hgb Plt Count Lymphocytes # (Manual) Monocytes # (Manual) Metamyelocytes # (Man) PT INR APTT Carbon Dioxide 21 L BUN 21 H Glucose 113 H POC Glucose (mg/dL) 114 H HDL Cholesterol 31.60 L 05/10/22 05/10/22 06:01 07:49 Hgb Plt Count Lymphocytes # (Manual) Monocytes # (Manual) Metamyelocytes # (Man) PT 17.3 H INR 1.7 H APTT Carbon Dioxide BUN Glucose POC Glucose (mg/dL) 123 H HDL Cholesterol Assessment and Plan Assessment: Transient dysarthria and on examination has subtle left nasolabial flattening (patient does not appreciate facial weakness) is likely transient ischemic attack. Has history of atrial fibrillation but INR is subtherapeutic (on presentation INR 1.9 and currently 1.7) History of atrial fibrillation status post cardiac ablation on Coumadin Recent COVID-19 infection Heart failure status post AICD Diabetes mellitus Diabetic peripheral neuropathy Hyperlipidemia Plan: The ED started the patient on aspirin 325 daily and was given aspirin 325 once in the ED in addition the patient was started on Coumadin. From a neurologic perspective aspirin is not needed since INR was subtherapeutic and recommend continuing Coumadin and we'll defer the use of aspirin to the primary/cardiology team. He has ALLERGY to statin (pravastatin) but is on fenofibrate 54 mg daily. Will avoid the use of statin (stated has muscle cramps and does not want any statins)/ Cannot obtain MRI but because the patient has AICD. Will get repeat CT head for tomorrow to assess if any changes compared to initial CT head. Continue neuro checks On cardiac regarding PT, OT and CREAM DIPPER are consulted Patient to continue to follow-up with locomotive operator as outpatient. We'll defer the rest of the medical management to the primary team Upon discharge the patient needs to follow-up with a neurologist as outpatient within 1-2 weeks The plan is discussed with patient and his nurse. Thank you for the consultation. James Montenegro M.D. Neuro-Hospitalist Time with Patient: Greater than 30
[2022-05-10 12:26] LABS: Glucose,Whole Blood 180 mg/dL (70-110)
[2022-05-10] MEDS ORDERED: DEXTROSE 50% SYRINGE 50 ML IVP PRN ×2 (13:05)
[2022-05-10 17:12] LABS: Glucose,Whole Blood 181 mg/dL (70-110)
[2022-05-10] MEDS: ACETAMINOPHEN TAB 325 MG TAB PO PRN (17:35)
[2022-05-10] MEDS ORDERED: WARFARIN 3 MG TAB PO ONE (18:00)
[2022-05-10] MEDS: INSULIN ASPART (NovoLOG) 100 UNIT/ML VIAL SQ SCH ×2 (18:00→20:46)
[2022-05-10] MEDS: metFORMIN 500 MG TAB PO SCH (18:00)
[2022-05-10 20:36] LABS: Glucose,Whole Blood 191 mg/dL (70-110)
[2022-05-10] MEDS: ALBUTEROL HFA INHALER INHALATION PRN (20:39)
[2022-05-10 20:42] VITALS: TEMP 98
[2022-05-10] MEDS: DIGOXIN 125 MCG TAB PO SCH (20:47)
[2022-05-10] MEDS ORDERED: DAPAGLIFLOZIN PROPANEDIOL 10 MG TABLET PO SCH (21:00)
[2022-05-11 06:32] LABS: INR 2.1 (<1.2)
--- NOTE | 2022-05-11 07:41 | CT ---
EXAMINATION TYPE: CT brain wo con DATE OF EXAM: 05/11/2022 HISTORY: Lt facial droop, stroke, and dysarthria. CT DLP: 1054.2 mGycm. Automated Exposure Control for Dose Reduction was Utilized. TECHNIQUE: CT scan of the head is performed without contrast. COMPARISON: CT brain 2 days ago. FINDINGS: There is no acute intracranial hemorrhage or midline shift identified. There is mild to m oderate diffuse ventricular and sulcal prominence consistent with diffuse age-related cerebral atroph y. There is moderate low-attenuation in the deep and periventricular white matter consistent with ch ronic small vessel ischemic change. The globes are intact and the visualized sinuses are clear. Pr ominent soft tissue density consistent with cerumen in the deep right external auditory canal is rede monstrated. IMPRESSION: No acute intracranial hemorrhage or midline shift. There is mild to moderate diffuse ag e-related cerebral atrophy and moderate chronic small vessel ischemic change redemonstrated. No signi ficant change from CT study 2 days earlier.
--- NOTE | 2022-05-11 07:57 | PN ---
PROGRESS NOTE SUBJECTIVE: This is a 72-year-old white male, who woke up last night with shortness of breath. I ordered Ventolin inhaler 2 puffs q.4 hours p.r.n. for him. Continue on his normal home medications. He can repeat CT scan tomorrow. He has had no more further episodes of arm or leg weakness. He still has difficulty moving numbness. OBJECTIVE: CARDIOVASCULAR: S1, S2. LUNGS: Clear. GI: Soft. HEMATOLOGY: Negative Homans. ASSESSMENT: Transient ischemic attack type symptoms. CT scan in the morning, possible discharge home, Ventolin inhaler, possible home CPAP test will need to be done. Prognosis guarded. MMODL / IJN: [id number] /
[2022-05-11 07:58] LABS: Glucose,Whole Blood 123 mg/dL (70-110)
[2022-05-11] MEDS: metFORMIN 500 MG TAB PO SCH (08:03)
[2022-05-11] MEDS: INSULIN ASPART (NovoLOG) 100 UNIT/ML VIAL SQ SCH ×2 (08:03→13:19)
[2022-05-11 08:48] VITALS: BP 117/75; PULSE 72; RESP 18
[2022-05-11] MEDS ORDERED: INSULIN DETEMIR (LEVEMIR) 100 UNIT/ML SYR SQ SCH (09:00)
--- NOTE | 2022-05-11 09:40 | P.PN ---
Subjective Progress Note Date: 05/11/22 The patient is seen at bedside and he feels his slurred speech is drastically better. He denies of any other focal weakness. Objective - Vital Signs Vital signs: Vital Signs Temp 98.0 F 05/11/22 07:00 Pulse 72 05/11/22 07:00 Resp 18 05/11/22 07:00 BP 117/75 05/11/22 07:00 Pulse Ox 95 05/11/22 07:00 FiO2 Intake & Output 05/10/22 05/11/22 05/11/22 18:59 06:59 18:59 Output Total 0 0 Balance 0 0 Weight 97.522 kg Output: Emesis 0 0 Other: # Voids 3 1 - Exam GENERAL: The patient is lying in bed and is not in acute distress. NEUROLOGICAL: Higher mental function: The patient is awake, alert, oriented to self, place and time. Patient is following commands. No aphasia and no neglect. Cranial nerves: The pupils are round, equal and reactive to light. Visual campbell are full to confrontation throughout. Extraocular movement is intact no nystagmus is noted. Facial sensation is normal to touch throughout. The facial strength is left nasolabial flattening (he looked himself with use of cameraphone and he does not appreciated it as new). Hearing is mildly decreased bilaterally to hand rub. Tongue is midline and moved [id number] without any difficulty. No dysarthria is noted. Shoulder shrug is normal bilaterally. Motor: Gait is deferred. The strength is 5 over 5 throughout. Normal tone and bulk. Cerebellum: Normal finger to nose bilaterally. Sensation: Sensation is normal to touch throughout. Reflexes (right/left): 1+ throughout. Plantars are downgoing bilaterally. Some of the workup during this hospital visit consisted of: CT of the head is reported as no acute intracranial hemorrhage or midline shift. There is mild diffuse age-related cerebral atrophy and mild to moderate chronic small vessel ischemic changes noted. I personally reviewed the CT head and I agree there is no acute or subacute ischemia and there is no intracranial hemorrhage or that was able to appreciate CT angiography of the head and neck is reported as no significant abnormality is seen. 2-D echo was reported as reduced left ventricle systolic function. Dilated left atrium with mild mitral regurgitation. Moderate aortic dilation at the level of the sinal bulbar junction. Left atrium is mildly increased left atrial diameter. Severely increased left atrial volume. Repeat CT head on 05/11/2022: It is reported as no acute intracranial hemorrhage or midline shift. There is mild to moderate diffuse age-related cerebral atrophy and moderate chronic small vessel ischemic changes redemonstrated. No significant change from CT study 2 days earlier. I personally reviewed this to the head and I agree with the report. Lipid panel as triglyceride 128, cholesterol 173, LDL of 115 and HDL of 31. TSH is 0.993. Vitamin B12 is 4:30 Most current INR is 2.1. - Labs CBC & Chem 7: 05/09/22 10:45 05/09/22 10:45 Labs: Abnormal Lab Results - Last 24 Hours (Table) 05/10/22 05/10/22 05/10/22 Range/Units 06:01 10:48 12:25 PT (9.0-12.0) sec INR (<1.2) POC Glucose (mg/dL) 180 H (70-110) mg/dL HDL Cholesterol 31.60 L (40.00-60.00) mg/dL Coronavirus (PCR) Detected A (Not Detectd) 05/10/22 05/10/22 05/11/22 Range/Units 17:11 20:35 05:57 PT 21.0 H (9.0-12.0) sec INR 2.1 H (<1.2) POC Glucose (mg/dL) 181 H 191 H (70-110) mg/dL HDL Cholesterol (40.00-60.00) mg/dL Coronavirus (PCR) (Not Detectd) 05/11/22 Range/Units 07:56 PT (9.0-12.0) sec INR (<1.2) POC Glucose (mg/dL) 123 H (70-110) mg/dL HDL Cholesterol (40.00-60.00) mg/dL Coronavirus (PCR) (Not Detectd) Microbiology - Last 24 Hours (Table) 05/10/22 01:05 Urine Culture - Preliminary Urine,Voided Assessment and Plan Assessment: Transient dysarthria and on examination has subtle left nasolabial flattening (patient does not appreciate facial weakness) is likely transient ischemic attack. Has history of atrial fibrillation but INR is subtherapeutic (on presentation INR 1.9 then 1.7) History of atrial fibrillation status post cardiac ablation on Coumadin Recent COVID-19 infection Heart failure status post AICD Diabetes mellitus Diabetic peripheral neuropathy Hyperlipidemia Plan: From a neurologic perspective aspirin is not needed since INR was subtherapeutic and recommend continuing Coumadin and we'll defer the use of aspirin to the primary/cardiology team. He has ALLERGY to statin (pravastatin) but is on fenofibrate 54 mg daily. Will avoid the use of statin (stated has muscle cramps and does not want any statins)/ Cannot obtain MRI but because the patient has AICD. Repeat CT head was unremarkable. Continue neuro checks On cardiac regarding PT, OT and PEDIATRIC GENETICIST are consulted Patient to continue to follow-up with cerner analyst as outpatient. We'll defer the rest of the medical management to the primary team Upon discharge the patient needs to follow-up with a neurologist as outpatient within 1-2 weeks The plan is discussed with patient and his nurse. There is no additional work-up and patient is clear for discharge. Will sign off. Please reconsult if needed. James Montenegro M.D. Neuro-Hospitalist Time with Patient: Less than 30
[2022-05-11] MEDS: NIRMATRELVIR PO SCH (09:48)
[2022-05-11] MEDS: [UNRECOGNIZED DRUG - OTHER] PO SCH (09:48)
[2022-05-11] MEDS: RITONAVIR PO SCH (09:48)
[2022-05-11] MEDS: SODIUM CHLORIDE 0.9% 1,000 ML IV SCH (09:55)
[2022-05-11] MEDS: FENOFIBRATE 54 MG TAB PO SCH (09:56)
[2022-05-11] MEDS: TIMOLOL 0.5% OPHTH DROPS 5 ML BTL LEFT EYE SCH (09:56)
[2022-05-11] MEDS: PANTOPRAZOLE 40 MG TABLET PO SCH (09:57)
[2022-05-11] MEDS: SACUBITRIL/VALSARTAN 97 MG-103 MG TABLET PO SCH (09:57)
[2022-05-11] MEDS: ACETAMINOPHEN TAB 325 MG TAB PO PRN (09:57)
[2022-05-11] MEDS: METOPROLOL SUCCINATE (ER) 50 MG TAB.ER.24H PO SCH (09:58)
[2022-05-11] MEDS: FAMOTIDINE 20 MG TAB PO SCH (09:58)
[2022-05-11] MEDS: GABAPENTIN 400 MG CAP PO SCH (09:58)
[2022-05-11] MEDS: ASPIRIN 325 MG TAB PO SCH (09:58)
[2022-05-11 11:51] LABS: Glucose,Whole Blood 164 mg/dL (70-110)
[2022-05-11] MEDS: ALBUTEROL HFA INHALER INHALATION PRN (12:31)
[2022-05-11] MEDS ORDERED: SYMBICORT 160-4.5 MCG INHALER INHALATION SCH (20:00)
[2022-05-12] MEDS ORDERED: WARFARIN 7.5 MG TAB PO SCH (18:00)
--- NOTE | 2022-05-12 23:38 | PN ---
PROGRESS NOTE SUBJECTIVE: Jose Ochoa is cleared by Neurology with repeat CAT scan negative for any issues including stroke. OBJECTIVE: CARDIOVASCULAR: S1, S2. LUNGS: Clear. GI: Soft. ASSESSMENT AND PLAN: He is going to go home. Follow up as an outpatient with sleep study. Medication was adjusted for blood pressure, orthostatic hypotension. Inhaler, Symbicort 160/4.5 two puffs b.i.d. for breathing as he wakes up gasping for air. Prognosis guarded. MMODL / IJN: [id number] /
== END 2022-05-11 15:18 | disposition home or self-care (01) ==
LOC: EC 10:28 → 6NMEDSUR 11:39
PROVIDERS: ADMIT Family Medicine; ATTEND Family Medicine
DX: R47.81 Slurred speech (principal); R29.810 Facial weakness; D75.1 Secondary polycythemia; D69.6 Thrombocytopenia, unspecified; E86.0 Dehydration; R94.4 Abnormal results of kidney function studies; R06.02 Shortness of breath; U07.1 COVID-19; I50.9 Heart failure, unspecified; I48.91 Unspecified atrial fibrillation; K21.9 Gastro-esophageal reflux disease without esophagitis; E78.5 Hyperlipidemia, unspecified; F41.9 Anxiety disorder, unspecified; E11.42 Type 2 diabetes mellitus with diabetic polyneuropathy; Z95.810 Presence of automatic (implantable) cardiac defibrillator; Z79.01 Long term (current) use of anticoagulants; Z79.899 Other long term (current) drug therapy; Z79.84 Long term (current) use of oral hypoglycemic drugs; Z79.4 Long term (current) use of insulin; Z82.49 Family history of ischemic heart disease and other diseases of the circulatory system
CPT/HCPCS: 96372 ×2; 99285; 36415; 94640 ×2; 93005; 93306; 97162; 97166; 92610; 80061; 80053; 84443; 82533; 82607; 83605; 85025; 85610 ×3; 85730; 87086; 87635; 71046; 70496; 70450 ×2; 70498; G0378 ×3; Q9967

== ENCOUNTER → 2022-07-07 | Outpatient (CLI) | payer MEDICARE, BC ==
--- NOTE | 2022-07-07 11:44 | P.SLEEP ---
History of Present Illness DATE: 07/07/2022 CONSULTATION/NEW PATIENT EVALUATION HISTORY OF PRESENT ILLNESS/SLEEP-WAKE EVALUATION: 72year old lady had been e valuated in the sleep center for possible obstructive sleep apnea hypopnea syndrome. SLEEP SCHEDULE: Usually sleep schedule from 11:30 PM to 7 AM. FALLING ASLEEP: No problems with falling asleep, although patient has TV set in bedroom. DURING SLEEP: Patient sleeps on the back and side position. According to his he says occasional snoring. Patient wakes up from sleep up to 6 times. Positive history of episodes of gasping for air and dry mouth while awakenings from sleep. After awakenings usually doesn't have problems with the falling asleep. No history of hypnogogical hallucinations, sleep paralysis, or cataplexy. DURING THE DAY/WAKE STATE: In the morning patient wake up tired, has problems with memory, falling asleep during the day. Meridian sleepiness scale is significantly increased to 13. Patient may take 2 naps during the day. PAST MEDICAL HISTORY: Atrial fibrillation, diabetes mellitus, acid reflux. PAST SURGICAL HISTORY: Bilateral total knee replacement, left shoulder replacement, back surgery for decompression and lumbar area, permanent pacemaker insertion. MEDICATIONS: Metoprolol 50 mg once a day, Lasix 40 mg once a day, omeprazole 20 mg once a day, Aldactone 50 mg once a day, metformin 1000 mg twice a day, fenofibrate, insulin, Xarelto 21 mg once a day, digoxin 125 mg once a day SOCIAL HISTORY: Negative for smoking, alcohol consumption none. FAMILY HISTORY: []Heart problems, diabetes REVIEW OF SYSTEMS: []Occasional snoring, multiple awakenings from sleep, sleepiness during the day.No fevers. No double vision. No recent chest pain. No shortness of breath. No abdominal pain. No bleeding episodes. No blood in urine. No seizure episodes. PHYSICAL EXAMINATION: GENERAL: A pleasant patient without any distress. VITAL SIGNS: BP[] 115/75HR [ 82RR[] 16weight[] 212 pounds, height[] 5 foot[] 10 inches, body mass index[] 30.4 HEENT: PERRLA, EOMI. Evaluation of oropharynx showed tongue protrudes midline, low position of soft palate Mallampati[] 4 NECK: Supple. No JVD. Thyroid is not palpable. [ 16 inches in circumference. LUNGS: Clear to percussion and to auscultation. Good air exchange. No wheezing or rhonchi. HEART: S1, S2 regular. No murmurs, gallops or rubs. ABDOMEN: Soft and nontender. Bowel sounds are present. No organomegaly appreciated. EXTREMITIES: No clubbing or cyanosis. UPPER LINING CEMENTER: Awake, alert, and oriented x3. Cranial nerves 2 to 7 intact. There is no fasciculation or atrophy noted. No focal deficits observed. ASSESSMENT: 1. [ Multiple awakenings from sleep up to 6 times, extremely low position of soft palate Mallampati 4, sleepiness Meridian Sleepiness Scale increased to 13. Obstructive sleep apnea-hypopnea syndrome 2. [ Atrial fibrillation 3 [].diabetes mellitus 4. [ Acid reflux 5 [increased eye pressure]. 6. [ Status post permanent pacemaker insertion 7. [ Status post bilateral total knee replacement 8. []. Status post left shoulder replacement 9. [ Status post decompression surgery in the lumbar area PLAN: 1. Polysomnography for evaluation of patient's breathing during sleep. 2. CPAP/BiPAP titration if sleep study confirms obstructive sleep apnea- hypopnea syndrome. 3. Preferable position during sleep on the side. 4. No driving if patient feels any sleepiness. Patient is aware of civil and criminal liability for unsafe driving. 5. Sleep hygiene with regular sleep time for at least 7.5-8 hours. 6. Watching weight. Thank you very much for referring this patient for consultation. Sincerely, Jake Lomeli MD, PhD, FAASM. Diplomat of [place] [employer], Sleep Medicine Board by [place] [employer] [place] [employer] Customer Security Clerk of [facility] [place] Past Medical History Past Medical History: Atrial Fibrillation, Heart Failure, Diabetes Mellitus, Eye Disorder, GERD/Reflux, Hyperlipidemia, Osteoarthritis (OA), Vascular Disorder Additional Past Medical History / Comment(s): L eye problem-hardening of some kind. History of Any Multi-Drug Resistant Organisms: None Reported Past Surgical History: Adenoidectomy, AICD, Back Surgery, Cardiac Ablation, Heart Catheterization, Hernia Repair, Joint Replacement, Orthopedic Surgery, Tonsillectomy Additional Past Surgical History / Comment(s): 05/2016 AICD UPGRADE, 01/2015 GENERATOR CHANGE, EP STUDY AND ABLATION , CARDIOVERSIONS, DFTS.,L ACHILLES TENDON REPAIR, [place] TOTAL KNEES, TOTAL LEFT ANKLE, EGD/COLONOSCOPY, left total ankle replacement,laminectomy Past Anesthesia/Blood Transfusion Reactions: No Reported Reaction Additional Past Anesthesia/Blood Transfusion Reaction / Comment(s): Pt has never received blood. Type of Cardiac Device: AICD Device Placement Date:: 2007-DEVICE/2014-BATTERY/2016-UPGRADE Past Psychological History: Anxiety Additional Psychological History / Comment(s): . Past Alcohol Use History: Occasional Past Drug Use History: None Reported Additional Drug Use History / Comment(s): cbd oil - Past Family History Mother Family Medical History: Cancer Additional Family Medical History / Comment(s): . Father Family Medical History: Myocardial Infarction (MO) Additional Family Medical History / Comment(s): FATHER OF A MO AT THE AGE OF 66YRS. Brother(s) Family Medical History: No Reported History Daughter(s) Family Medical History: No Reported History Son(s) Family Medical History: No Reported History Medications and Allergies Home Medications Medication Instructions Recorded Confirmed Type Timolol [Betimol 0.5% Ophth Soln] 1 drop LEFT EYE DAILY 06/26/15 05/09/22 History Warfarin Sodium 10 mg PO SUTUTH 06/17/16 05/09/22 History Digoxin [Lanoxin] 125 mcg PO HS 09/15/16 05/09/22 History Ergocalciferol (Vitamin D2) 50,000 unit PO ROSEN 10/22/19 05/09/22 History [Drisdol (50,000 Iu)] Fenofibrate Nanocrystallized 48 mg PO DAILY 10/22/19 05/09/22 History [Fenofibrate] Sacubitril/Valsartan [Entresto 97 1 tab PO BID 10/22/19 05/09/22 History mg-103 mg Tablet] metFORMIN HCL [Glucophage] 1,000 mg PO BID 10/22/19 05/09/22 History Gabapentin [Neurontin] 400 mg PO TID 05/09/22 05/09/22 History Insulin Glargine,Hum.rec.anlog 50 units SQ DAILY 05/09/22 05/09/22 History [Lantus Solostar Pen] Liraglutide [Victoza 3-Ruddy] 1.8 mg SQ DAILY 05/09/22 05/09/22 History Nirmatrelvir/Ritonavir [Paxlovid 1 dose PO BID 05/09/22 05/09/22 History 300-100 mg Pack (Eua)] Warfarin [Coumadin] 7.5 mg PO MOWEFRSA 05/09/22 05/09/22 History Acetaminophen Tab [Tylenol] 650 mg PO Q4HR PRN tab 05/11/22 Rx Albuterol Inhaler [Ventolin Hfa 2 puff INHALATION RT-QID PRN each 05/11/22 Rx Inhaler] Aspirin 325 mg PO DAILY tab 05/11/22 Rx Budesonide-Formot 160-4.5 Mcg 2 puff INHALATION RT-BID 30 Days 05/11/22 Rx [Symbicort 160-4.5 Mcg Inhaler] #1 each Dapagliflozin Propanediol [Farxiga] 10 mg PO HS 30 Days #30 tab 05/11/22 Rx Metoprolol Succinate (ER) [Toprol 50 mg PO QAM 30 Days #30 tab 05/11/22 Rx XL] Pantoprazole [Protonix] 40 mg PO DAILY 30 Days #30 tab 05/11/22 Rx Allergies Allergy/AdvReac Type Severity Reaction Status Date / Time pravastatin AdvReac Join pain Verified 05/09/22 13:51 and Muscle cramps Sleep Note - Sleep Note Sleep Note: Temperature: Pulse Rate: Respiratory Rate: Blood Pressure: SpO2: Height: Weight: BMI: Neck Circumference:
== END ==
LOC: SLEEP 10:53
PROVIDERS: ATTEND Internal Medicine
DX: G47.33 Obstructive sleep apnea (adult) (pediatric) (principal); I48.91 Unspecified atrial fibrillation; E11.9 Type 2 diabetes mellitus without complications; K21.9 Gastro-esophageal reflux disease without esophagitis; Z95.0 Presence of cardiac pacemaker; Z96.653 Presence of artificial knee joint, bilateral; Z96.612 Presence of left artificial shoulder joint; Z98.1 Arthrodesis status; Z79.84 Long term (current) use of oral hypoglycemic drugs; Z88.8 Allergy status to other drugs, medicaments and biological substances
CPT/HCPCS: 99211

== ENCOUNTER → 2022-07-21 | Outpatient (CLI) | payer MEDICARE, BC ==
--- NOTE | 2022-07-21 11:38 | CT ---
EXAMINATION TYPE: CT lumbar spine wo con CT DLP: 1245 mGycm, Automated exposure control for dose reduction was used. DATE OF EXAM: 07/21/2022 11:13 AM COMPARISON: 07/11/2018. CLINICAL INDICATION:Male, 72 years old with history of M47.817 spondylosis; Low back pain. TECHNIQUE: Multiple axial images were obtained from the midportion of T11 through the sacroiliac sandra nts. Soft tissue and bone windows in coronal and sagittal planes were obtained and reviewed. Contrast used: none. Oral contrast used: none. FINDINGS: Alignment: There are 5 lumbar type vertebral bodies. Levoscoliosis apex L3. Bone: Multilevel disc degeneration changes are seen throughout the spine. These findings are worse at the lower lumbar spine. There is mild superior endplate loss of height at L4. Multilevel facet joint arthropathy seen throughout the spine there is levoscoliosis apex L3. Postsurgical changes L4. Discs: T12-L1: No spinal canal or neural foraminal stenosis is identified. L1-L2: Left central osteophyte with moderate spinal canal and mild bilateral neural foraminal stenosi s. L2-L3: Osteophyte complex with at least mild spinal canal stenosis. There is moderate to severe right and mild left neural foraminal stenosis. L3-L4: Osteophyte complex with facet joint arthropathy results in mild to moderate spinal canal and m oderate left and moderate to severe right neural foraminal stenosis. L4-L5: Disc bulge and facet joint arthropathy result in mild spinal canal narrowing and moderate poly ateral neural foraminal stenosis. L5-S1: Disc bulge and facet joint arthropathy result in moderate spinal canal narrowing. There is mod erate bilateral neural foraminal stenosis. Other: Atherosclerosis of the arterial vasculature. Partially visualized cardiac conduction leads. IMPRESSION: 1. No evidence of fracture of the lumbar spine. 2. Moderate to severe disc degeneration changes throughout the spine with varying degrees of spinal c anal stenosis secondary disc osteophyte complexes and disc bulging. Findings are worse at L1-L2 and L 5-S1. Spinal canal and worse at L3-L4 and L2-L3 the neural foramen stenosis.
== END | disposition home or self-care (01) ==
LOC: RADCTMAIN 10:54
PROVIDERS: ATTEND Physical Medicine & Rehabilitation
DX: M47.817 Spondylosis without myelopathy or radiculopathy, lumbosacral region (principal); M51.36 Other intervertebral disc degeneration, lumbar region; M48.061 Spinal stenosis, lumbar region without neurogenic claudication; M99.73 Connective tissue and disc stenosis of intervertebral foramina of lumbar region; M25.78 Osteophyte, vertebrae
CPT/HCPCS: 72131

== ENCOUNTER → 2022-10-01 | Outpatient (CLI) | payer MEDICARE, BC ==
[2022-10-01 15:43] LABS: ALT 16 U/L (10-49); AST 16 U/L (14-35); Albumin 4.6 g/dL (3.8-4.9); Albumin/Globulin Ratio 1.92 (1.60-3.17); Alkaline Phosphatase 60 U/L (41-126); Blood Urea Nitrogen 24.6 mg/dL (9.0-27.0); Calcium 9.8 mg/dL (8.7-10.3); Chloride 100 mmol/L (96-109); Chol/HDL Ratio 5.97 Ratio; Globulin 2.4 g/dL (1.6-3.3); Glucose 62 mg/dL (70-110); LDL Cholesterol,Calculated 137.7 mg/dL (0.0-131.0); Non-African American GFR(CKD) 75.9 (60.0-200.0); Potassium 4.4 mmol/L (3.5-5.5); Sodium 142 mmol/L (135-145)
[2022-10-01 22:16] LABS: Microalbumin Creatinine Ratio <30 mg/g Creat (0-30); Urine Creatinine 22.5 mg/dL (39.0-259.0)
== END | disposition home or self-care (01) ==
LOC: LABWHC1 10:12
PROVIDERS: ATTEND Family Medicine
DX: E11.65 Type 2 diabetes mellitus with hyperglycemia (principal); E55.9 Vitamin D deficiency, unspecified
CPT/HCPCS: 36415; 80053; 80061; 82043; 82306; 82570; 83036

== ENCOUNTER → 2023-06-02 | Outpatient (CLI) | payer MEDICARE, BC ==
[2023-06-02 22:12] LABS: HCT 50.7 % (39.6-50.0); HGB 17.3 d/dL (13.0-17.0); MCH 32.6 pg (27.0-32.0); MCHC 34.1 d/dL (32.0-37.0); MCV 95.7 FL (80.0-97.0); Mean Platelet Volume 11.2 FL (9.5-12.2); NRBC Per 100 WBC 0 X 10*3/uL (0.00-0.01); Platelet Count 220 X 10*3/uL (140-440); WBC 10.99 X 10*3/uL (4.50-10.00)
== END | disposition home or self-care (01) ==
LOC: LABPAT 13:52
PROVIDERS: ATTEND Orthopaedic Surgery
DX: Z01.812 Encounter for preprocedural laboratory examination (principal); M19.011 Primary osteoarthritis, right shoulder
CPT/HCPCS: 85027

== ENCOUNTER 2023-06-06 07:15 | Day surgery (SDC) | payer MEDICARE, BC ==
[2023-05-31 09:51] VITALS: BMI 27.6
[~2023-06-06 07:15] MED LIST changes: +ACETAMINOPHEN TAB 500 MG TAB PO PRN; +GABAPENTIN 300 MG CAP PO PRN; -LACTATED RINGERS 1,000 ML IV SCH; -LIDOCAINE 1% 20 ML VIAL (10MG/ML) FOR IV START INTRADERMA PRN; +MELOXICAM 7.5 MG TAB PO PRN; +TRANEXAMIC 1,000 MG/100ML-NACL 1,000 MG in SALINE 1 100ML.BAG IVPB PRN
[2023-06-06] MEDS ORDERED: DEXAMETHASONE SOD PHOSPHATE 4 MG/ML 1 ML VIAL IV ONE (07:26)
[2023-06-06] MEDS ORDERED: HYDROmorphone 0.5 MG/0.5 ML SYRINGE IVP PRN ×4 (07:26→08:41)
[2023-06-06] MEDS ORDERED: MIDAZOLAM 2 MG/2 ML VIAL IV PRN (07:26)
[2023-06-06] MEDS ORDERED: LIDOCAINE 1% (10MG/ML) FOR IV START INTRADERMA PRN (07:26)
[2023-06-06] MEDS ORDERED: fentaNYL (PF) 50 MCG/ML 2 ML AMP IVP PRN (07:26)
[2023-06-06] MEDS ORDERED: METOCLOPRAMIDE 5 MG/ML 2 ML VIAL IVP PRN (07:26)
[2023-06-06] MEDS ORDERED: ONDANSETRON 4 MG/2 ML VIAL IVP ONE (07:26)
[2023-06-06] MEDS: LACTATED RINGERS 1,000 ML IV SCH (07:58)
[2023-06-06 08:01] LABS: Glucose,Whole Blood 178 mg/dL (70-110)
[2023-06-06 08:23] LABS: Prothrombin Time 10.8 sec (9.0-12.0)
[2023-06-06] MEDS ORDERED: SENNOSIDES-DOCUSATE SODIUM 1 EACH TAB PO PRN (08:41)
[2023-06-06] MEDS ORDERED: ONDANSETRON 4 MG/2 ML VIAL IVP PRN (08:41)
[2023-06-06] MEDS ORDERED: HYDROcodone/APAP 7.5-325MG 1 EACH TAB PO PRN (08:45)
[2023-06-06] MEDS ORDERED: fentaNYL (PF) 50 MCG/ML 2 ML AMP IVP ONE (08:59)
[2023-06-06] MEDS ORDERED: MIDAZOLAM 2 MG/2 ML VIAL IVP ONE (08:59)
[2023-06-06] MEDS ORDERED: PROPOFOL 10 MG/ML 20 ML VIAL IV ONE (09:06)
[2023-06-06] MEDS ORDERED: TRANEXAMIC 1,000 MG/100ML-NACL PREMIX BAG ONE (09:06)
[2023-06-06] MEDS ORDERED: fentaNYL (PF) 50 MCG/ML 2 ML AMP ONE (09:06)
[2023-06-06] MEDS ORDERED: ROPIVACAINE 5 MG/ML 30 ML VIAL ONE (09:06)
[2023-06-06] MEDS ORDERED: SUCCINYLCHOLINE CHLORIDE 200 MG/10 ML VIAL IV ONE (09:06)
[2023-06-06] MEDS ORDERED: ePHEDrine 50 MG/ML 1 ML VIAL ONE (09:06)
[2023-06-06] MEDS ORDERED: LIDOCAINE 1% INJ 10MG/ML (20 ML MDV) ONE (09:06)
[2023-06-06] MEDS ORDERED: ceFAZolin 1,000 MG in SODIUM CHLORIDE 0.9% 1,000 ML IRRIGATION ONE (09:31)
--- NOTE | 2023-06-06 10:26 | P.ANPRN ---
Procedure Note - Anesthesia - Nerve Block Performed Right Interscalene Single Time Out Performed: Yes ([id number]) Date of Procedure: 06/06/23 Procedure Start Time: 08:59 Procedure Stop Time: 09:04 Location of Patient: PreOp Indication: Acute Post-Operative Pain, Requested by Surgeon Specifically requested for management of pain by DrSulaiman: Christiano Palomino Sedation Type: Sedate with meaningful contact maintained Preparation: Sterile Prep Position: Supine Catheter: None Needle Types: Pajunk Needle Gauge: 21 Ultrasound used to visualize needle placement: Yes Ultrasound used to observe medication spread: Yes Injectate: 0.5% Ropivacaine (see comment for volume) (30cc) Blood Aspirated: No Pain Paresthesia on Injection Noted: No Resistance on Injection: Normal Image Stored and Saved: Yes Events: Uneventful and Well Tolerated
--- NOTE | 2023-06-06 10:30 | P.OP ---
Date of Procedure: 06/06/23 Preoperative Diagnosis: Severe osteoarthritis the right shoulder with chronic rotator cuff tear Postoperative Diagnosis: Severe osteoarthritis the right shoulder with chronic rotator cuff tear Procedure(s) Performed: Reverse right total shoulder arthroplasty Implants: Biomet comprehensive shoulder system, mini humeral stem, 14 mm porous-coated. Biomet comprehensive reverse shoulder system, humeral bearing, 36 mm, standard Biomet comprehensive reverse shoulder system, mini humeral tray, 40 mm, +0, standard Biomet comprehensive reverse shoulder, Glenosphere mini baseplate, 25 mm Biomet comprehensive reverse shoulder, central screw, 6.5 mm x 25 mm Biomet comprehensive reverse shoulder, fixed locking screw, 4.75 x 20 mm, 20 mm, 15 mm, 25 mm. Biomet comprehensive reverse shoulder glenosphere, 36 mm, standard All components were press-fit. Articulation is metal on polyethylene.Articulation is metal on polyethylene. Anesthesia: GETA Surgeon: Christiano Palomino Joint Yarner #1: Shelly Pandya Estimated Blood Loss (ml): 100 Pathology: none sent Condition: stable Disposition: PACU Indications for Procedure: This is a patient that presented to my office with severe pain in the shoulder. X-rays demonstrated severe osteoarthritis of the glenohumeral joint of his shoulder. After failure of conservative treatment, we discussed the surgical and nonsurgical treatment options at length. The patient wishes to proceed with a reverse total shoulder arthroplasty. Patient is aware of the complications of the procedure which include but are not limited to infection, hardware failure, persistent pain, dislocation, and nerve injury. Informed consent was obtained. Operative Findings: The operative findings are consistent with severe osteoarthritis right shoulder with chronic rotator cuff tear Description of Procedure: The patient was seen in the preoperative area, consent was reviewed, and operative site was marked with a skin marker. Patient was then brought to the operating room and given preoperative antibiotics intravenously. Patient was also given 1 g of Tranexamic acid intravenously. A general anesthetic was administered by the anesthesia department. A Gonsales catheter was placed by the nursing staff. The patient was then placed in a beachchair position with the bony prominences well-padded and the head secured. The shoulder was then p repped and draped in the usual sterile fashion. A universal timeout was then performed, which confirmed the patient's name, surgical site, ALLERGIES, and consent. A standard deltopectoral approach was performed. The skin and subcutaneous tissue was sharply dissected down to the deltoid fascia. The cephalic vein was then identified and retracted medially. The deltopectoral interval was then ut ilized to expose the subscapularis tendon. A retractor was then placed under the coracobrachialis tendon retracted medially, and the deltoid. The axillary nerve is palpated and protected throughout the procedure. The subscapularis tendon was then released and retracted medially. The humeral head was then exposed easily. The rotator cuff tendon was found to be completely torn and retracted. After the humeral head was exposed, osteophytes were removed with a Ronguer. Next the humeral stem was prepared. A starter reamer was then placed through the humeral head along the axis of the humeral shaft just lateral to the articular surface and just medial to the rotator cuff attachment. Sequential reaming was performed to the appropriate size reamer was inserted to the #between the 3 and 4 on the reamer. Next the intramedullary resection guide was placed on the reamer shaft. It was placed to the appropriate resection depth and angle of 30 of retroversion. Resection guide block was then secured with Steinmann pins. The proximal humerus was then resected. The block was then removed and the humerus was then broached sequentially to the same size as the reamer. After the broaches fully seated, the broach handle was removed and a broach cover was placed protect the humerus while the glenoid was prepared. Next attention was directed to the glenoid. The appropriate retractors were placed around the glenoid and any remaining soft tissues was removed from around the glenoid. After the glenoid was adequately exposed, the threaded glenoid guide was placed onto the glenoid and a 3.2 mm Steinmann pin was inserted in the glenoid at the desired angle and position, ensuring the pin engaged medial cortical wall. Next, the cannulated baseplate reamer was placed over the top of the Steinmann pin. The glenoid was then reamed to the appropriate depth. The glenoid reamer was then removed, leaving the Steinmann pin. The glenoid Donnell plate implant was placed on the end of the cannulated baseplate impactor. The baseplate was then impacted fully into the glenoid. Next the 6.5 mm central screw was then placed which afforded excellent fixation. The 4 peripheral locking screws were then drilled measured and placed. Next the appropriate glenosphere was opened and impacted into the glenoid baseplate. Attention was then redirected to the humerus. Next a trial humeral tray was placed in the shoulder was reduced. Shoulder was taken through a full range of motion and found to be stable. The shoulder was then gently dislocated, and the trial humerus and humeral tray were removed. The final humeral stem was impacted in the final humeral tray was impacted as well. Shoulder was then relocated. Again the shoulder was taken through a range of motion and found to have no instability. Shoulder was then irrigated with pulsatile lavage. The shoulder was then irrigated with Irrisept solution. A second dose of 1 g of Tranexamic acid was given. The subscapularis was then repaired with #1 Vicryl. The deltopectoral interval was then closed with #1 Vicryl as well. The subcutaneous tissues were closed with 2-0 Vicryl then 3-0 stratafix. Exofin glue was placed on the skin. A sterile dressing was then applied, the patient was transported to the recovery room in an arm sling in stable condition. The bindery assistant CHANDA Donahue was required due the complexity of surgery and the need for a skilled activities assistant.
--- NOTE | 2023-06-06 12:30 | XR ---
EXAMINATION TYPE: XR shoulder limited RT DATE OF EXAM: 06/06/2023 11:41 AM CLINICAL INDICATION:Male, 73 years old with history of postop; COMPARISON: 05/09/2022, TECHNIQUE: XR shoulder limited RT; shoulder was examined in frontal projection projections. FINDINGS: Post shoulder arthroplasty changes with hardware in apparent position. No evidence of acute fracture. Cutaneous lucencies within the joint compatible with gas from recent surgery. Visualized portions of lung demonstrate low lung volumes with suspected atelectasis. IMPRESSION: Post surgical changes without acute postop complication.
[2023-06-06 13:37] LABS: Glucose,Whole Blood 173 mg/dL (70-110)
[2023-06-06] MEDS ORDERED: ACETAMINOPHEN TAB 500 MG TAB PO PRN (14:02)
[2023-06-06] MEDS ORDERED: GABAPENTIN 400 MG CAP PO PRN (14:02)
[2023-06-06] MEDS ORDERED: DEXTROSE 50% SYRINGE 50 ML IVP PRN ×2 (14:04)
--- NOTE | 2023-06-06 14:48 | P.CONS ---
History of Present Illness - Reason for Consult Consult date: 06/06/23 Medical management - Chief Complaint Right shoulder pain - History of Present Illness * 73-year-old gentleman with past medical history significant for chronic atrial fibrillation, chronic congestive heart failure systolic dysfunction, history of AICD in place, history of cardiac catheterization, gastric region reflux disease, osteoarthritis, dyslipidemia, presented to the hospital for elective right shoulder surgery * Patient is seen postoperative day status post reverse right total shoulder arthroplasty * During the encounter patient was accompanied by at bedside, patient asymptomatic denies of any acute issues * Home medications reviewed and reconciled. Patient is on Coumadin for history of atrial fibrillation that will be continued will hold off on Lovenox and follow up on INR tomorrow REVIEW OF SYSTEMS: CONSTITUTIONAL: No fever, no malaise, no fatigue. HEENT: No recent visual problems or hearing problems. Denied any sore throat. CARDIOVASCULAR: No chest pain, orthopnea, PND, no palpitations, no syncope. PULMONARY: No shortness of breath, no cough, no hemoptysis. GASTROINTESTINAL: No diarrhea, no nausea, no vomiting, no abdominal pain. NEUROLOGICAL: No headaches, no weakness, no numbness. HEMATOLOGICAL: Denies any bleeding or petechiae. GENITOURINARY: Denies any burning micturition, frequency, or urgency. MUSCULOSKELETAL/RHEUMATOLOGICAL: Denies any joint pain, swelling, or any muscle pain. ENDOCRINE: Denies any polyuria or polydipsia. PHYSICAL EXAMINATION: GENERAL: The patient is alert and oriented x3, not in any acute distress. Well developed, well nourished. HEENT: Pupils are round and equally reacting to light. EOMI. No scleral icterus. No conjunctival pallor. Normocephalic, atraumatic. No pharyngeal erythema. No thyromegaly. CARDIOVASCULAR: S1 and S2 present. No murmurs, rubs, or gallops. , Trace lower extremity edema PULMONARY: Chest is clear to auscultation, no wheezing or crackles. ABDOMEN: Soft, nontender, nondistended, normoactive bowel sounds. No palpable organomegaly. MUSCULOSKELETAL: Status post right shoulder surgery, bandage range of motion limited EXTREMITIES: No cyanosis, clubbing, or pedal edema. NEUROLOGICAL: Gross neurological examination did not reveal any focal deficits. SKIN: No rashes. Past Medical History Past Medical History: Atrial Fibrillation, Heart Failure, Diabetes Mellitus, Eye Disorder, GERD/Reflux, Hyperlipidemia, Osteoarthritis (OA), Vascular Disorder Additional Past Medical History / Comment(s): L eye problem-hardening of some kind. History of Any Multi-Drug Resistant Organisms: None Reported Past Surgical History: Adenoidectomy, AICD, Back Surgery, Cardiac Ablation, Heart Catheterization, Hernia Repair, Joint Replacement, Orthopedic Surgery, Tonsillectomy Additional Past Surgical History / Comment(s): 05/2016 AICD UPGRADE, 01/2015 GENERATOR CHANGE, EP STUDY AND ABLATION , CARDIOVERSIONS, DFTS.,L ACHILLES TENDON REPAIR, [place] TOTAL KNEES, TOTAL LEFT ANKLE, EGD/COLONOSCOPY, left total ankle replacement,laminectomy, right shoulder replacement. Past Anesthesia/Blood Transfusion Reactions: No Reported Reaction Additional Past Anesthesia/Blood Transfusion Reaction / Comm: Pt has never received blood. Type of Cardiac Device: AICD Device Placement Date:: 2007-DEVICE/2014-BATTERY/2015-UPGRADE Smoking Status: Never smoker Past Alcohol Use History: Occasional Past Drug Use History: None Reported Additional Drug Use History / Comment(s): cbd oil - Past Family History Mother Family Medical History: Cancer Additional Family Medical History / Comment(s): . Father Family Medical History: Myocardial Infarction ([place]) Additional Family Medical History / Comment(s): FATHER OF A [place] AT THE AGE OF 66YRS. Brother(s) Family Medical History: No Reported History Daughter(s) Family Medical History: No Reported History Son(s) Family Medical History: No Reported History Medications and Allergies Home Medications Medication Instructions Recorded Confirmed Type Timolol [Betimol 0.5% Oph Soln] 1 drop LEFT EYE DAILY 06/26/15 06/06/23 History Digoxin [Lanoxin] 125 mcg PO HS 09/15/16 06/06/23 History Ergocalciferol (Vitamin D2) 50,000 unit PO ROSEN 10/22/19 06/06/23 History [Drisdol (50,000 Iu)] Fenofibrate Nanocrystallized 48 mg PO DAILY 10/22/19 06/06/23 History [Fenofibrate] Sacubitril/Valsartan [Entresto 97 1 tab PO BID 10/22/19 06/06/23 History mg-103 mg Tablet] metFORMIN HCL [Glucophage] 1,000 mg PO QAM 10/22/19 06/06/23 History Gabapentin [Neurontin] 400 mg PO TID PRN 05/09/22 06/06/23 History Insulin Glargine,Hum.rec.anlog 50 units SQ QAM 05/09/22 06/06/23 History [Lantus Solostar Pen] Liraglutide [Victoza 3-Ruddy] 1.8 mg SQ DAILY 05/09/22 06/06/23 History Aspirin 325 mg PO DAILY tab 05/11/22 06/06/23 Rx Metoprolol Succinate (ER) [Toprol 50 mg PO QAM 30 Days #30 tab 05/11/22 06/06/23 Rx XL] Acetaminophen [Tylenol Extra 1,000 mg PO TID PRN 05/31/23 06/06/23 History Strength] Albuterol Inhaler [Ventolin Hfa 2 puff INHALATION QID 05/31/23 06/06/23 History Inhaler] Empagliflozin [Jardiance] 25 mg PO HS 05/31/23 06/06/23 History Omeprazole 20 mg PO QAM 05/31/23 06/06/23 History Warfarin [Coumadin] 7.5 mg PO MOWETHFRSA 05/31/23 06/06/23 History Warfarin [Coumadin] 11.25 mg PO SUTU 05/31/23 06/06/23 History Enoxaparin [Lovenox] 30 mg SQ BID 06/06/23 06/06/23 History HYDROcodone/APAP 7.5-325MG [[place] 1 - 2 tab PO Q6H PRN #32 tab 06/06/23 Rx 7.5-325] Sennosides [Senokot] 2 tab PO DAILY PRN #60 tablet 06/06/23 Rx Allergies Allergy/AdvReac Type Severity Reaction Status Date / Time pravastatin AdvReac Join pain Verified 06/06/23 07:27 and Muscle cramps [id number] Reductase AdvReac Unknown Verified 06/06/23 08:40 Inhibitor Physical Exam Vitals: Vital Signs Temp Pulse Pulse Resp BP Pulse Ox 06/06/23 14:17 97.3 F L 70 17 102/57 95 06/06/23 13:15 69 16 107/62 94 L 06/06/23 13:00 72 16 102/59 94 L 06/06/23 12:30 72 16 106/63 95 06/06/23 12:00 69 16 101/52 95 06/06/23 11:45 69 16 106/63 95 06/06/23 11:30 69 16 102/65 95 06/06/23 11:15 69 16 103/65 95 06/06/23 11:00 69 16 104/63 95 06/06/23 10:45 97.4 F L 70 16 113/68 95 06/06/23 09:06 66 16 117/65 97 06/06/23 07:36 97.2 F L 70 16 106/57 96 Intake and Output 06/05/23 06/06/23 06/06/23 22:59 06:59 14:59 Intake Total 1551 Output Total 100 Balance 1451 Intake: IV 1551 Output: Estimated Blood Loss 100 Other: Weight 91 kg Results Labs: Abnormal Lab Results - Last 24 Hours (Table) 06/06/23 06/06/23 Range/Units 07:53 13:34 POC Glucose (mg/dL) 178 H 173 H (70-110) mg/dL Assessment and Plan Assessment: Assessment and plan * Status post right shoulder arthroplasty secondary to osteoarthritis * Chronic congestive heart failure systolic dysfunction status post AICD in place * Chronic atrial fibrillation * Chronic anticoagulation with Coumadin * Diabetes mellitus type 2 * Peripheral neuropathy secondary to diabetes * Hyperlipidemia * Patient seen postoperative day, internal medicine team will continue to follow along. Home medications reviewed and reconciled. Patient to receive postoperative antibiotic per primary team * In regards to atrial fibrillation continue patient on digoxin and Coumadin and pharmacy to dose. Continue to check INR. No need to bridge with Lovenox at this point * In regards to diabetes mellitus, Accu-Cheks before meals at bedtime, continue patient on correctional insulin and Lantus, monitor for hypoglycemia. Continue metformin * In regards to peripheral neuropathy continue patient on gabapentin * Patient will need physical therapy occupational therapy evaluation * CODE STATUS is full code
[2023-06-06] MEDS: HYDROcodone/APAP 7.5-325MG 1 EACH TAB PO PRN (16:15)
[2023-06-06 16:23] LABS: Glucose,Whole Blood 232 mg/dL (70-110)
[2023-06-06] MEDS: ALBUTEROL NEBULIZED 2.5 MG/3 ML INHALATION SCH ×2 (16:48→20:37)
[2023-06-06] MEDS: INSULIN ASPART (NovoLOG) 100 UNIT/ML VIAL SQ SCH ×2 (17:59→20:14)
[2023-06-06] MEDS ORDERED: WARFARIN 3 MG TAB PO ONE (18:00)
[2023-06-06 19:46] LABS: Glucose,Whole Blood 286 mg/dL (70-110)
[2023-06-06] MEDS ORDERED: DIGOXIN 125 MCG TAB PO SCH (21:00)
[2023-06-07] MEDS: HYDROcodone/APAP 7.5-325MG 1 EACH TAB PO PRN (02:48)
[2023-06-07 06:20] LABS: Glucose,Whole Blood 127 mg/dL (70-110)
[2023-06-07] MEDS: INSULIN ASPART (NovoLOG) 100 UNIT/ML VIAL SQ SCH (06:21)
[2023-06-07] MEDS ORDERED: INSULIN DETEMIR (LEVEMIR) 100 UNIT/ML SYR SQ SCH (07:00)
[2023-06-07] MEDS ORDERED: PANTOPRAZOLE 40 MG TABLET PO SCH (07:30)
[2023-06-07 07:47] LABS: Prothrombin Time 10.9 sec (9.0-12.0)
[2023-06-07] MEDS: LACTATED RINGERS 1,000 ML IV SCH (07:58)
[2023-06-07] MEDS ORDERED: METOPROLOL SUCCINATE (ER) 50 MG TAB.ER.24H PO SCH (09:00)
[2023-06-07] MEDS ORDERED: ASPIRIN 325 MG TAB PO SCH (09:00)
[2023-06-07] MEDS ORDERED: TIMOLOL 0.5% OPHTH DROPS 5 ML BTL LEFT EYE SCH (09:00)
[2023-06-07] MEDS ORDERED: metFORMIN 500 MG TAB PO SCH (09:00)
[2023-06-07] MEDS ORDERED: FENOFIBRATE 54 MG TAB PO SCH (09:00)
[2023-06-07] MEDS: ALBUTEROL NEBULIZED 2.5 MG/3 ML INHALATION SCH ×2 (09:17→13:07)
[2023-06-07 09:31] VITALS: BP 103/63; PULSE 70; RESP 14; TEMP 98.1
[2023-06-07 11:13] LABS: HCT 44.9 % (39.6-50.0); HGB 14.6 d/dL (13.0-17.0); MCH 32.1 pg (27.0-32.0); MCHC 32.5 d/dL (32.0-37.0); MCV 98.7 FL (80.0-97.0); Mean Platelet Volume 10.7 FL (9.5-12.2); NRBC Per 100 WBC 0 X 10*3/uL (0.00-0.01); Platelet Count 164 X 10*3/uL (140-440); RBC 4.55 X 10*6/uL (4.40-5.60); RDW 13.9 % (11.5-14.5); WBC 10.12 X 10*3/uL (4.50-10.00)
[2023-06-07 11:16] LABS: Calcium 8.6 mg/dL (8.7-10.3); Carbon Dioxide 24.5 mmol/L (21.6-31.8); Chloride 105 mmol/L (96-109); Glucose 110 mg/dL (70-110); Potassium 4.3 mmol/L (3.5-5.5); Sodium 142 mmol/L (135-145)
--- NOTE | 2023-06-07 11:17 | P.DS ---
Providers Expected date of discharge: 06/07/23 Attending physician: Christiano Palomino Consults: 06/06/23 08:41 Consult Physician Routine Consulting Provider: Nacho Cheek Consult Reason/Comments: medical management and anticoagulation Do you want consulting provider notified?: Yes 06/06/23 13:51 Consult Physician Routine Consulting Provider: Daren Damon Consult Reason/Comments: medical management Do you want consulting provider notified?: Yes Primary care physician: Nacho Cheek - Discharge Diagnosis(es) (1) S/p reverse total shoulder arthroplasty Current Visit: Yes Status: Acute (2) Osteoarthritis of right shoulder Current Visit: Yes Status: Acute Hospital Course: This is a 73-year-old male with known history of degenerative arthritis of the right shoulder and chronic rotator cuff tear. The patient presented for evaluation as an outpatient. After discussion and consideration patient elects to proceed with reverse total shoulder arthroplasty. The patient is seen preoperatively by Dr. Palomino and medically cleared for surgery by their primary care physician. Patient is admitted to [facility] on 06/06/2023 for reverse total shoulder arthroplasty. The procedure is performed without complication or sequelae. The patient is doing well postoperatively. Labs and vital signs are stable on day of discharge. On day of discharge the patient's shoulder incision is healing well. There is minimal erythema. There is no drainage noted at this time. There is minimal soft tissue swelling to the shoulder. Patient has full hand and wrist motion without difficulty or pain. Neurovascular status to the right upper extremity is intact. Patient is discharged home in good condition. Please see med rec for accurate list of home medications. Plan - Discharge Summary Discharge Rx Participant: No New Discharge Prescriptions: New HYDROcodone/APAP 7.5-325MG [[place] 7.5-325] 1 - 2 tab PO Q6H PRN #32 tab PRN Reason: Pain Sennosides [Senokot] 2 tab PO DAILY PRN #60 tablet PRN Reason: Constipation No Action Timolol [Betimol 0.5% Ophth Soln] 1 drop LEFT EYE DAILY Digoxin [Lanoxin] 125 mcg PO HS Ergocalciferol (Vitamin D2) [Drisdol (50,000 Iu)] 50,000 unit PO ROSEN Sacubitril/Valsartan [Entresto 97 mg-103 mg Tablet] 1 tab PO BID Fenofibrate Nanocrystallized [Fenofibrate] 48 mg PO DAILY metFORMIN HCL [Glucophage] 1,000 mg PO QAM Gabapentin [Neurontin] 400 mg PO TID PRN PRN Reason: Pain Albuterol Inhaler [Ventolin Hfa Inhaler] 2 puff INHALATION QID Acetaminophen [Tylenol Extra Strength] 1,000 mg PO TID PRN PRN Reason: Pain Omeprazole 20 mg PO QAM Empagliflozin [Jardiance] 25 mg PO HS Insulin Glargine,Hum.rec.anlog [Lantus Solostar Pen] 50 units SQ QAM Liraglutide [Victoza 3-Ruddy] 1.8 mg SQ DAILY Aspirin 325 mg PO DAILY tab Metoprolol Succinate (ER) [Toprol XL] 50 mg PO QAM 30 Days #30 tab Warfarin [Coumadin] 7.5 mg PO MOWETHFRSA Warfarin [Coumadin] 11.25 mg PO SUTU Enoxaparin [Lovenox] 30 mg SQ BID Discharge Medication List Timolol [Betimol 0.5% Ophth Soln] 1 drop LEFT EYE DAILY 06/26/15 [History] Digoxin [Lanoxin] 125 mcg PO HS 09/15/16 [History] Ergocalciferol (Vitamin D2) [Drisdol (50,000 Iu)] 50,000 unit PO ROSEN 10/22/19 [History] Fenofibrate Nanocrystallized [Fenofibrate] 48 mg PO DAILY 10/22/19 [History] Sacubitril/Valsartan [Entresto 97 mg-103 mg Tablet] 1 tab PO BID 10/22/19 [History] metFORMIN HCL [Glucophage] 1,000 mg PO QAM 10/22/19 [History] Gabapentin [Neurontin] 400 mg PO TID PRN 05/09/22 [History] Insulin Glargine,Hum.rec.anlog [Lantus Solostar Pen] 50 units SQ QAM 05/09/22 [History] Liraglutide [Victoza 3-Ruddy] 1.8 mg SQ DAILY 05/09/22 [History] Aspirin 325 mg PO DAILY tab 05/11/22 [Rx] Metoprolol Succinate (ER) [Toprol XL] 50 mg PO QAM 30 Days #30 tab 05/11/22 [Rx] Acetaminophen [Tylenol Extra Strength] 1,000 mg PO TID PRN 05/31/23 [History] Albuterol Inhaler [Ventolin Hfa Inhaler] 2 puff INHALATION QID 05/31/23 [History] Empagliflozin [Jardiance] 25 mg PO HS 05/31/23 [History] Omeprazole 20 mg PO QAM 05/31/23 [History] Warfarin [Coumadin] 7.5 mg PO MOWETHFRSA 05/31/23 [History] Warfarin [Coumadin] 11.25 mg PO SUTU 05/31/23 [History] Enoxaparin [Lovenox] 30 mg SQ BID 06/06/23 [History] HYDROcodone/APAP 7.5-325MG [[place] 7.5-325] 1 - 2 tab PO Q6H PRN #32 tab 06/06/23 [Rx] Sennosides [Senokot] 2 tab PO DAILY PRN #60 tablet 06/06/23 [Rx] Follow up Appointment(s)/Referral(s): Christiano Palomino DO [Doctor of Osteopathic Medicine] - 2 Weeks Activity/Diet/Wound Care/Special Instructions: Maintain sling for comfort. Dressing may be removed by home care nurse or by patient in 7 days. Then change dressing twice daily until follow up. May shower with initial dressing intact and after removal. If dressing become saturated, please remove. Resume Coumadin per family physician. Please follow-up with [facility] and call with any questions or concerns, . Discharge Disposition: HOME WITH HOME HEALTH SERVICES
[2023-06-07 11:56] LABS: Glucose,Whole Blood 171 mg/dL (70-110)
--- NOTE | 2023-06-07 12:49 | P.PN ---
Subjective Progress Note Date: 06/07/23 * 73-year-old gentleman with past medical history significant for chronic atrial fibrillation, chronic congestive heart failure systolic dysfunction, history of AICD in place, history of cardiac catheterization, gastric region reflux disease, osteoarthritis, dyslipidemia, presented to the hospital for elective right shoulder surgery * Patient is seen postoperative day status post reverse right total shoulder arthroplasty * During the encounter patient was accompanied by at bedside, patient asymptomatic denies of any acute issues * Home medications reviewed and reconciled. Patient is on Coumadin for history of atrial fibrillation * 06/07/23: A shunt seen and evaluated bedside, vitals reviewed, heart rate within normal limits. Serum chemistry reviewed WBC 10 hemoglobin 14.6 INR 1 A1c 6.6, okay to discharge home continue home regimen of Coumadin PHYSICAL EXAMINATION: GENERAL: The patient is alert and oriented x3, not in any acute distress. Well developed, well nourished. HEENT: Pupils are round and equally reacting to light. EOMI. No scleral icterus. No conjunctival pallor. Normocephalic, atraumatic. No pharyngeal erythema. No thyromegaly. CARDIOVASCULAR: S1 and S2 present. No murmurs, rubs, or gallops. , Trace lower extremity edema PULMONARY: Chest is clear to auscultation, no wheezing or crackles. ABDOMEN: Soft, nontender, nondistended, normoactive bowel sounds. No palpable organomegaly. MUSCULOSKELETAL: Status post right shoulder surgery, bandage range of motion limited EXTREMITIES: No cyanosis, clubbing, or pedal edema. NEUROLOGICAL: Gross neurological examination did not reveal any focal deficits. SKIN: No rashes. Objective - Vital Signs Vital signs: Vital Signs Temp 98.1 F 06/07/23 07:14 Pulse 70 06/07/23 08:00 Resp 14 06/07/23 08:00 BP 103/63 06/07/23 07:14 Pulse Ox 95 06/07/23 07:14 FiO2 Intake & Output 06/06/23 06/07/23 06/07/23 18:59 06:59 18:59 Intake Total 2031 200 Output Total 500 Balance 1531 200 Weight 91 kg Intake: IV 1551 Oral 480 200 Output: Urine 400 Estimated Blood Loss 100 Other: Voiding Method Toilet Toilet # Voids 2 2 - Labs CBC & Chem 7: 06/07/23 06:37 06/07/23 06:37 Labs: Abnormal Lab Results - Last 24 Hours (Table) 06/06/23 06/06/23 06/06/23 Range/Units 13:34 16:21 19:44 WBC (4.50-10.00) X 10*3/uL MCV (80.0-97.0) FL MCH (27.0-32.0) pg Anion Gap (4.00-12.00) mmol/L BUN/Creatinine Ratio (12.00-20.00) Ratio POC Glucose (mg/dL) 173 H 232 H 286 H (70-110) mg/dL Hemoglobin A1c (<=6.0) % Calcium (8.7-10.3) mg/dL 06/07/23 06/07/23 06/07/23 Range/Units 06:18 06:37 06:37 WBC 10.12 H (4.50-10.00) X 10*3/uL MCV 98.7 H (80.0-97.0) FL MCH 32.1 H (27.0-32.0) pg Anion Gap (4.00-12.00) mmol/L BUN/Creatinine Ratio (12.00-20.00) Ratio POC Glucose (mg/dL) 127 H (70-110) mg/dL Hemoglobin A1c 6.6 H (<=6.0) % Calcium (8.7-10.3) mg/dL 06/07/23 06/07/23 Range/Units 06:37 11:52 WBC (4.50-10.00) X 10*3/uL MCV (80.0-97.0) FL MCH (27.0-32.0) pg Anion Gap 12.50 H (4.00-12.00) mmol/L BUN/Creatinine Ratio 22.50 H (12.00-20.00) Ratio POC Glucose (mg/dL) 171 H (70-110) mg/dL Hemoglobin A1c (<=6.0) % Calcium 8.6 L (8.7-10.3) mg/dL Assessment and Plan Assessment: Assessment and plan * Status post right shoulder arthroplasty secondary to osteoarthritis POD 1 * Chronic congestive heart failure systolic dysfunction status post AICD in place * Chronic atrial fibrillation * Chronic anticoagulation with Coumadin * Diabetes mellitus type 2 * Peripheral neuropathy secondary to diabetes * Hyperlipidemia * Patient seen postoperative day 1 , Home medications reviewed and reconciled. Patient to receive postoperative antibiotic per primary team * In regards to atrial fibrillation continue patient on digoxin and Coumadin Continue to check INR. No need to bridge with Lovenox at this point * In regards to diabetes mellitus, Accu-Cheks before meals at bedtime, continue home regimen upon discharge * In regards to peripheral neuropathy continue patient on gabapentin * Patient will need physical therapy occupational therapy evaluation for discharge home per primary team * CODE STATUS is full code
[2023-06-07] MEDS ORDERED: WARFARIN 3 MG TAB PO ONE (18:00)
[2023-06-12] MEDS ORDERED: ERGOCALCIFEROL 1,250 MCG (50,000 IU) CAPSULE PO SCH (09:00)
== END 2023-06-07 13:24 | disposition home health service (06) ==
LOC: OR 07:15 → 4SSUR 10:45 → OR 06-07 13:24
PROVIDERS: ATTEND Orthopaedic Surgery
DX: M19.011 Primary osteoarthritis, right shoulder (principal); M75.101 Unspecified rotator cuff tear or rupture of right shoulder, not specified as traumatic; M25.711 Osteophyte, right shoulder; I48.20 Chronic atrial fibrillation, unspecified; K21.9 Gastro-esophageal reflux disease without esophagitis; Z79.899 Other long term (current) drug therapy
CPT/HCPCS: 23472; 94640; 94760; 64415; 80048; 85027; 85610 ×2; 83036; 73020; C1776; J2250; J0330; J1100; J0690 ×3; J2405; J2001; J3010; J2795; J2704; J1170

== ENCOUNTER → 2024-03-12 | Outpatient (CLI) | payer MEDICARE, BC ==
--- NOTE | 2024-03-12 14:04 | CT ---
EXAMINATION TYPE: CT lumbar spine wo con DATE OF EXAM: 03/12/2024 1:53 PM COMPARISON: 07/21/2022 HISTORY: Lumbar spinal stenosis, back pain CT DLP: 879.30 mGycm Automated exposure control for dose reduction was used. Unenhanced CT of the lumbar spine was performed. Bone and soft tissue window settings are submitted as well as coronal and sagittal reconstructions. L1-L2: Moderate degenerative disc space narrowing with posterior disc bulge and partially encapsulati ng spur. Left paracentral disc bulge resulting in left lateral recess stenosis and left foraminal enc roachment. L2-L3: Severe disc desiccation with vacuum disc. Posterior disc bulge with encapsulating spur resulti ng in disc endplate complex. Moderate central stenosis. Moderate bilateral foraminal encroachment. L3-L4: Severe disc desiccation with vacuum disc. Posterior disc bulge with encapsulating spur resulti ng in disc endplate complex. Moderate central stenosis. Moderate bilateral foraminal encroachment. L4-L5: Severe disc desiccation with vacuum disc. Laminectomy changes appear unchanged. No evidence re current central stenosis. No herniation present. Moderate bilateral foraminal encroachment. L5-S1: Moderate degenerative disc space narrowing. Subligamentous broad-based disc herniation effaces the ventral thecal sac. There is a moderate central stenosis and left lateral recess stenosis. Moder ate left foraminal encroachment. IMPRESSION: 1. Multilevel degenerative disc disease as discussed with multilevel foraminal encroachment and centr al stenosis.
== END | disposition home or self-care (01) ==
LOC: RADCTMAIN 13:33
PROVIDERS: ATTEND Psychiatry & Neurology Neurology
DX: M48.061 Spinal stenosis, lumbar region without neurogenic claudication (principal); M51.36 Other intervertebral disc degeneration, lumbar region; R29.898 Other symptoms and signs involving the musculoskeletal system
CPT/HCPCS: 72131

== ENCOUNTER 2024-03-15 13:13 | Day surgery (SDC) | payer MEDICARE, BC ==
[~2024-03-15 13:13] MED LIST changes: -ACETAMINOPHEN TAB 500 MG TAB PO PRN; -GABAPENTIN 300 MG CAP PO PRN; +LIDOCAINE 1% (10MG/ML) FOR IV START INTRADERMA PRN; -MELOXICAM 7.5 MG TAB PO PRN; -TRANEXAMIC 1,000 MG/100ML-NACL 1,000 MG in SALINE 1 100ML.BAG IVPB PRN
[2024-03-15] MEDS: SODIUM CHLORIDE 0.9% 1,000 ML BAG IV STA (13:53)
[2024-03-15 13:54] LABS: Glucose,Whole Blood 143 mg/dL (70-110)
[2024-03-15] MEDS: IV FLUID CONTINUATION 1,000 ML IV ONE (13:55)
[2024-03-15 14:20] LABS: INR 2.2 (<1.2); Prothrombin Time 21.7 sec (10.0-12.5)
[2024-03-15 14:34] LABS: Basophils # (A) 0.1 k/uL (0-0.2); Basophils % (A) 1 %; Eosinophils # (A) 0.1 k/uL (0-0.7); Eosinophils % (A) 2 %; HCT 50.6 % (39.0-53.0); HGB 17.8 gm/dL (13.0-17.5); Lymphocytes # (A) 1.6 k/uL (1.0-4.8); Lymphocytes % (A) 20 %; MCH 32.8 pg (25.0-35.0); MCHC 35.2 g/dL (31.0-37.0); MCV 93.1 fL (80.0-100.0); Mean Platelet Volume 8.5; Monocytes # (A) 0.8 k/uL (0-1.0); Monocytes % (A) 10 %; Neutrophils # (A) 5.1 k/uL (1.3-7.7); Neutrophils % (A) 64 %; Platelet Count 178 k/uL (150-450); RBC 5.43 m/uL (4.30-5.90); RDW 14.4 % (11.5-15.5)
[2024-03-15 14:35] LABS: ALT 21 U/L (4-49); African American GFR (CKD) >90 (>60 ml/min/1.73 sqM); Albumin 4.5 g/dL (3.5-5.0); Anion Gap 10 mmol/L; Blood Urea Nitrogen 27 mg/dL (9-20); Calcium 9.5 mg/dL (8.4-10.2); Carbon Dioxide 17 mmol/L (22-30); Chloride 112 mmol/L (98-107); Glucose 142 mg/dL (74-99); Non-African American GFR(CKD) >90 (>60 ml/min/1.73 sqM); Sodium 139 mmol/L (137-145); Total Bilirubin 1.4 mg/dL (0.2-1.3); Total Protein 7.2 g/dL (6.3-8.2)
[2024-03-15 15:13] LABS: AST 40 U/L (17-59); Alkaline Phosphatase 82 U/L (38-126); Potassium 4.8 mmol/L (3.5-5.1)
[2024-03-15] MEDS ORDERED: diphenhydrAMINE 50 MG/ML 1 ML VIAL ONE (16:31)
[2024-03-15] MEDS ORDERED: MIDAZOLAM 2 MG/2 ML VIAL ONE (16:31)
[2024-03-15] MEDS ORDERED: fentaNYL (PF) 50 MCG/ML 2 ML AMP ONE (16:31)
[2024-03-15] MEDS: LIDOCAINE 1% INJ 10MG/ML (20 ML MDV) SQ ONE (17:09)
[2024-03-15] MEDS: ROPIVACAINE 5MG/ML 20ML VIAL MISCELLANE ONE (17:12)
[2024-03-15] MEDS: ceFAZolin 1,000 MG in SODIUM CHLORIDE 0.9% IRRIG BTL 250 ML IRRIGATION ONE (17:13)
--- NOTE | 2024-03-15 18:01 | P.EPPROC ---
- EP Procedure Note Electrophysiology Procedure Note: Diagnosis Cardiomyopathy, chronic, nonischemic Persistent atrial fibrillation status post AV node ablation Congestive heart failure [place] [employer] class 2 Complete heart block On guide line directed medical treatment for greater than 3 months BiV ICD generator at [facility] secondary to normal battery depletion Procedure: Biventricular ICD generator change for management of risk of sudden cardiac and congestive heart failure [place] heart failure [employer]-D, [place] BiV ICD generator Result: Successful biventricular ICD generator change Chronic atrial lead: Patient in atrial fibrillation, pace impedance 410 ohms, fibrillatory waves 1.5 mV Chronic RV ICD lead: Pacing threshold 0.75 V at 0.5 ms, pacing impedance 450 ohms Chronic left ventricular lead: Pacing threshold 1 V at 0.5 ms M3-RV coil, pacing impedance 560 ohms Pacing threshold for M2-P4 is 1 V at 0.5 ms, pacing impedance 1275 ohms High-voltage impedance 56 ohms Procedure details: Patient was brought to the EP lab in a fasting state. Written informed consent was obtained prior to the procedure. Options, pros and cons, benefits and risks and complications discussed with patient in detail prior to the procedure (shared decision making) previously. Importance of continuing medical treatment emphasized previously. Alternatives discussed previously. The left pectoral area was prepped and draped as a protocol. IV antibiotics administered 1% lidocaine was used for local anesthesia. A 4 cm incision was made parallel to the deltopectoral groove, about 1.5 cm medial to it. The incision was carried down to the level of the pectoralis muscle and the subfascial pocket was accessed. Hemostasis was assured. Chronic BiV ICD generator explanted. New BiV ICD generator implanted after partial capsulectomy, washing the pocket and placement of antibiotic pouch. Pocket irrigated with antibiotic solution. Antibiotic pouch placed Leads connected to the biventricular ICD generator. Wound closed in 3 layers and dressed per protocol Biventricular ICD interrogated and programmed. Appropriate pacing parameters, antitachycardia therapies with antitachycardia pacing cardioversion defibrillations programmed. BiV ICD programmed VVIR-70 bpm LV 1 to LV 2 to RV coil MADIT RIT programming Patient tolerated the procedure well without any acute complications. See scanned device report in EMR for lead details
[2024-03-15] MEDS: LACTATED RINGERS 1,000 ML IV SCH (18:32)
[2024-03-15] MEDS: SODIUM CHLORIDE 0.9% 500 ML 500 ML IV SCH (18:32)
[2024-03-15] MEDS: ACETAMINOPHEN IV (For NPO) 1,000 MG in EMPTY BAG 1 BAG IVPB ONE (19:13)
[2024-03-15] MEDS: ACETAMINOPHEN TAB 325 MG TAB PO PRN (22:33)
[2024-03-16 01:58] VITALS: PULSE 70
[2024-03-16 08:12] VITALS: BP 113/68; RESP 16; TEMP 97.6
--- NOTE | 2024-03-16 09:25 | P.DS ---
Providers Date of admission: 03/15/24 Attending physician: Ike Restrepo Primary care physician: Jodi Stephens More [facility] Course: the patient is a 74-year-old male with past medical history of nonischemic cardiomyopathy status post AICD, who presented to the hospital for biventricular ICD generator change. The patient underwent habit IV generator change without complication. patient interviewed and examined resting comfortably in bed. He states he was dealing with hypotension prior to his admission with minimal improvement after reducing his dose of Entresto. GENERAL: Well-appearing, well-nourished and in no acute distress. NECK: Supple without JVD or thyromegaly. LUNGS: Breath sounds clear to auscultation bilaterally. Respiration equal and unlabored. No wheezes, rales or rhonchi. HEART: Regular rate and rhythm without murmurs, rubs or gallops. S1 and S2 heard. dressing is clean dry and intact EXTREMITIES: Normal range of motion, no edema. No clubbing or cyanosis. Peripheral pulses intact and strong. TELEMETRY: paced rhythm IMPRESSION: nonischemic cardiomyopathy Persistent atrial fibrillation Congestive heart failure, class II Complete heart block PLAN: reduce Entresto to 24-26mg as the patient has been hypotensive at home Follow up with device clinic in one week Patient may be discharged by noon I am dictating on behalf of Dr Ike Restrepo's history/physical and assessment/plan. Plan - Discharge Summary Discharge Rx Participant: No New Discharge Prescriptions: New Sacubitril/Valsartan [Entresto 24 mg-26 mg Tablet] 1 each PO BID #180 tablet Continue Timolol [Betimol 0.5% Ophth Soln] 1 drop LEFT EYE DAILY Digoxin [Lanoxin] 125 mcg PO HS Ergocalciferol (Vitamin D2) [Drisdol (50,000 Iu)] 50,000 unit PO ROSEN Fenofibrate Nanocrystallized [Fenofibrate] 48 mg PO DAILY metFORMIN HCL [Glucophage] 1,000 mg PO QAM Gabapentin [Neurontin] 400 mg PO TID PRN PRN Reason: Pain Acetaminophen [Tylenol Extra Strength] 1,000 mg PO TID PRN PRN Reason: Pain Omeprazole 20 mg PO QAM Empagliflozin [Jardiance] 25 mg PO HS Aspirin [Adult Low Dose Aspirin EC] 81 mg PO DAILY Insulin Glargine,Hum.rec.anlog [Lantus Solostar Pen] 50 units SQ QAM Liraglutide [Victoza 3-Ruddy] 1.8 mg SQ DAILY Metoprolol Succinate (ER) [Toprol XL] 50 mg PO QAM 30 Days #30 tab Warfarin [Coumadin] 7.5 mg PO MOTUWEFRSA Warfarin [Coumadin] 11.25 mg PO SUTH Furosemide [Lasix] 20 mg PO DAILY Spironolactone [Aldactone] 50 mg PO DAILY Discontinued Sacubitril/Valsartan [Entresto 97 mg-103 mg Tablet] 0.5 tab PO BID Discharge Medication List Timolol [Betimol 0.5% Ophth Soln] 1 drop LEFT EYE DAILY 06/26/15 [History] Digoxin [Lanoxin] 125 mcg PO HS 09/15/16 [History] Ergocalciferol (Vitamin D2) [Drisdol (50,000 Iu)] 50,000 unit PO ROSEN 10/22/19 [History] Fenofibrate Nanocrystallized [Fenofibrate] 48 mg PO DAILY 10/22/19 [History] metFORMIN HCL [Glucophage] 1,000 mg PO QAM 10/22/19 [History] Gabapentin [Neurontin] 400 mg PO TID PRN 05/09/22 [History] Insulin Glargine,Hum.rec.anlog [Lantus Solostar Pen] 50 units SQ QAM 05/09/22 [History] Liraglutide [Victoza 3-Ruddy] 1.8 mg SQ DAILY 05/09/22 [History] Metoprolol Succinate (ER) [Toprol XL] 50 mg PO QAM 30 Days #30 tab 05/11/22 [Rx] Acetaminophen [Tylenol Extra Strength] 1,000 mg PO TID PRN 05/31/23 [History] Empagliflozin [Jardiance] 25 mg PO HS 05/31/23 [History] Omeprazole 20 mg PO QAM 05/31/23 [History] Warfarin [Coumadin] 7.5 mg PO MOTUWEFRSA 05/31/23 [History] Warfarin [Coumadin] 11.25 mg PO SUTH 05/31/23 [History] Aspirin [Adult Low Dose Aspirin EC] 81 mg PO DAILY 03/12/24 [History] Furosemide [Lasix] 20 mg PO DAILY 03/15/24 [History] Spironolactone [Aldactone] 50 mg PO DAILY 03/15/24 [History] Sacubitril/Valsartan [Entresto 24 mg-26 mg Tablet] 1 each PO BID #180 tablet 03/16/24 [Rx] Follow up Appointment(s)/Referral(s): Ike Restrepo MD [STAFF PHYSICIAN] - 1 Week (APPOINTMENT MADE ON February @ 3:00PM (DEVICE CLINIC @ DR. RESTREPO OFFICE).) Activity/Diet/Wound Care/Special Instructions: PATIENT EDUCATION MATERIAL Instructions following a heart rhythm device implant. 1. Keep dressing DRY for 5 DAYS. You may cover the area with Saran or Cling Wrap, prior to a shower. 2. The dressing will be removed in the Device Clinic at [facility]. Absorbable sutures were used to close the wound. 3. Avoid raising the left arm above the shoulder level. 4 week restriction 4. Avoid arm movements, like backscratching, rubbing the head, or pulling on a cord. 4 weeks restriction 5. Gentle range of motion movements of the shoulder, closest to the incision should be performed to avoid a frozen shoulder. (Pendulum exercises of the shoulder) 6. The opposite arm may be used freely. 7. Avoid driving for 7 days. 8. Avoid activities such as golfing, swimming, weed whacking, lifting more than 10 pounds weight, bowling, gymnastics and weight training/lifting. (6 weeks restriction) 9. Activities such as wood chopping with an axe, pull-ups in the gymnasium, power lifting, arc-welding, being close to home induction cooktops will always be a problem. 10. Arm sling is only a reminder not to raise the arm above the head. You do not need to keep the arm completely immobilized. Your free to move the arm and use it and for normal activities. In case of any problems, please call [facility], @ [phone], Attention: Device Clinic Device clinic follow-up in 5 days Follow-up with primary manuscripts curator in 2-3 months Discharge Disposition: HOME SELF-CARE
== END 2024-03-16 12:14 | disposition home or self-care (01) ==
LOC: CATHEP 13:13 → 6NMEDSUR 17:39 → CATHEP 03-16 12:14
PROVIDERS: ATTEND Internal Medicine Clinical Cardiac Electrophysiology
DX: I42.8 Other cardiomyopathies (principal); I44.2 Atrioventricular block, complete; I50.22 Chronic systolic (congestive) heart failure; I48.19 Other persistent atrial fibrillation; Z79.01 Long term (current) use of anticoagulants; Z79.82 Long term (current) use of aspirin; Z79.84 Long term (current) use of oral hypoglycemic drugs; Z79.85 Long-term (current) use of injectable non-insulin antidiabetic drugs
CPT/HCPCS: 33264; 80053; 84443; 85025; 85610

== ENCOUNTER → 2024-06-07 | Outpatient (CLI) | payer MEDICARE, BC ==
[2024-06-07 11:18] VITALS: BP 106/71; PULSE 62; RESP 17; TEMP 97.2
--- NOTE | 2024-06-07 14:44 | P.PAINPG ---
PQRS Measure Charge Sheet Comment: HISTORY OF PRESENT ILLNESS: A 74 yr old male w at side as a referral from Dr Cheek presents today w severe and chronic LBP > 5 yrs secondary to L4-L5 post laminectomy syndrome for evaluation. Pt states pain level is provoked at 6 /10 in intensity, constant, localized in the lower lumbar spine, predominantly axial, achy in character w occasional shooting pain towards the thighs and feet. Pain is provoked by standing/ walking for periods >15 min, and bending. Pain is alleviated by LESIs from Dr Salinas in 2023, PT x 6 wks which ended in Mar 2024, physician guided home stretches daily since Mar 2024, heat, ice, medications (Neurontin, Tyl, ASA), repositioning and rest . PMH: OA, aFib, CHF, NIDDM II, Eye Disorder, GERD, Hyperlipidemia, PVD PSH: Adenoidectomy, AICD (2017), Back Surgery, Cardiac Ablation (2014), Cardioversion, Heart Catheterization, Hernia Repair, BL Total Knee Replacement, Achilles Tendon Surgery, L Ankle Replacement, R Shoulder Replacement, Tonsillectomy, EGD/ Colonoscopies, BL TFESI L5-S1 (Jan 2023) SH: Never smoker, Occ ETOH use, CBD Oil use FH: Mo- CA. Fa- [place]. All: See list Meds: See list REVIEW OF ORGAN SYSTEMS: CONSTITUTIONAL: No fevers or chills. No recent weight loss. NEUROLOGICAL: + numbness and tingling along the distal extremities. No seizure disorders or headaches. MUSCULOSKELETAL: + pain PSYCHIATRIC: Denies current depression or suicidal thoughts. Physical Examinations : Constitutional : Cooperative , not in acute distress . Neurologic : Cranial nerve II to XII intact. No focal neurological deficits. Psychiatric : alert & oriented x 3. Matching mood & appropriate affect. Judgment & insight intact. Musculoskeletal : Cervical Spine Motor strength in the deltoid and biceps: Normal right side. Normal Left side Motor strength biceps and the wrist extensors: Normal right side . Normal left side Motor strength in the triceps muscle: Normal right side. Normal left side Deep tendon reflexes: Normal at the biceps. Normal at Brachioradialis. Normal at triceps Vertebral body tenderness to deep palpation over Cervical facet loading test: positive bilaterally Spurling test: positive bilaterally Neck distraction test: positive bilaterally Nabila sign: positive bilaterally Lumbar spine +Well Healed Incisional Scar Motor strength lower extremities ,thigh and legs 5/5 Right side , 5/5 Left side Deep tendon reflexes : Normal Knee Jerk. Normal Ankle Jerk Vertebral body tenderness over L3 Russell Test positive BL L3-L4 Lumbar facet Loading Test: positive Right / positive Left Range of motion of the lumbar spine Flexion 30 degrees, extension 10 degrees Straight Leg Raise test: Left/ Right positive at degrees Milan test: positive right / positive left. Severe tenderness over the Sacroiliac joint on the Right / Left sides Gaenslen test: positive bilaterally Seated flexion test: positive bilaterally. Sacral spine : Severe tenderness over the Sacroiliac j oint: right side / left side Range of motion: Flexion of the lumbar spine <60 degrees Range of motion: Extension of the lumbar spine <20 degrees Gaenslen's Test positive Milan test: positive right side / left side Thigh Thrust Test Sacral Thrust Test Imaging: CT non contrast lumbar spine from 03/12/24 reviewed Assessment/ Plan : L4-L5 Laminectomy syndrome Recommendation of DOMINGA L3-L4 #1. Risks, benefits of procedure discussed and patient verbalized understanding. Admits to anti- coagulant use or medical history of diabetes. Protocol for discontinuation/ continuation of medications valente procedure discussed. All questions answered. I have spent greater than 30 minutes on patient care today. Dr Mireles was available by phone for the evaluation of this patient. The time was used to review the medical records including relevant urine studies and Prescription history (MAPs), review of the available imaging, evaluation and examination of the patient, coordination of care with the medical staff and if applicable referring physicians, as well as creation of the medical record - Pain Location Lower Back Non-Pharmacological Interventions: Position/Reposition, Sitting Pharmacological Interventions: PRN Medication PQRS Narrative: Smoking Status Never smoker Home Medications: Ambulatory Orders Timolol [Betimol 0.5% Ophth Soln] 1 drop LEFT EYE DAILY 06/26/15 Digoxin [Lanoxin] 125 mcg PO HS 09/15/16 Ergocalciferol (Vitamin D2) [Drisdol (50,000 Iu)] 50,000 unit PO ROSEN 10/22/19 Fenofibrate Nanocrystallized [Fenofibrate] 48 mg PO DAILY 10/22/19 metFORMIN HCL [Glucophage] 1,000 mg PO QAM 10/22/19 Gabapentin [Neurontin] 400 mg PO TID PRN 05/09/22 Insulin Glargine,Hum.rec.anlog [Lantus Solostar Pen] 50 units SQ QAM 05/09/22 Liraglutide [Victoza 3-Ruddy] 1.8 mg SQ DAILY 05/09/22 Metoprolol Succinate (ER) [Toprol XL] 50 mg PO QAM 30 Days #30 tab 05/11/22 Acetaminophen [Tylenol Extra Strength] 1,000 mg PO TID PRN 05/31/23 Empagliflozin [Jardiance] 25 mg PO HS 05/31/23 Omeprazole 20 mg PO QAM 05/31/23 Warfarin [Coumadin] 7.5 mg PO MOTUWEFRSA 05/31/23 Warfarin [Coumadin] 11.25 mg PO SUTH 05/31/23 Aspirin [Adult Low Dose Aspirin EC] 81 mg PO DAILY 03/12/24 Furosemide [Lasix] 20 mg PO DAILY 03/15/24 Spironolactone [Aldactone] 50 mg PO DAILY 03/15/24 Sacubitril/Valsartan [Entresto 24 mg-26 mg Tablet] 1 each PO BID #180 tablet 03/16/24 Controlled Substance Measures - Controlled Substance Measures Is patient prescribed a controlled substance at discharge?: No
== END | disposition home or self-care (01) ==
LOC: PNWHC3 10:53
PROVIDERS: ATTEND Specialist
DX: M96.1 Postlaminectomy syndrome, not elsewhere classified (principal)
CPT/HCPCS: 99211

== ENCOUNTER → 2024-06-28 | Day surgery (SDC) | payer MEDICARE, BC ==
[~2024-06-28] MED LIST changes: +IOPAMIDOL M200 10 ML VIAL ONE; +LACTATED RINGERS 1,000 ML IV SCH; -LIDOCAINE 1% (10MG/ML) FOR IV START INTRADERMA PRN; +methylPREDNISolone ACETATE 40 MG/ML 1 ML VIAL ONE
[2024-06-28 08:20] VITALS: TEMP 97
[2024-06-28 08:26] LABS: Glucose,Whole Blood 161 mg/dL (70-110)
[2024-06-28 08:41] LABS: INR 1.1 (<1.2); Prothrombin Time 11.9 sec (10.0-12.5)
--- NOTE | 2024-06-28 09:21 | P.PCN ---
Date of Procedure: 06/28/24 Procedure(s) Performed: PREOPERATIVE DIAGNOSIS: 1- Lumbar Degenerative Disc Diseases 2-Lumbar postlaminectomy pain syndrome POSTOPERATIVE DIAGNOSIS: Same as preop diagnosis PROCEDURE 1. Lumbar epidural steroid injection under fluoroscopic guidance at the L3-4 level. (Fluoroscopy imaging was available in radiology department) 2. Lumbar epidurogram. ANESTHESIA: Lidocaine 1% 3 and then only. EBL: Minimal PROCEDURE INDICATION: The patient with low back pain and radiculitis symptoms unresponsive to conservative treatment. Fluoroscopy was used to optimize visualization of the needle placement and to maximize safety. PROCEDURE DESCRIPTION / TECHNIQUE: The patient was seen and identified in the preoperative area. Risks, benefits, complications including but not limited to infections ,bleeding ,allergic reaction to the medications ,nerve damage and not complete pain releife , and alternatives were discussed with the patient. The patient agreed to proceed with the procedure and signed the consent, and vital signs were stable. Patient was taken to the OR and time out was completed. The patient was placed in the prone position on procedure table and a pillow was placed under the abdomen to reduce lumbar lordosis. The lumbosacral area was prepped and draped in the usual sterile fashion.ere closely monitored during the procedure. Vital signs was monitered during the entire procedure. Using anterior-posterior fluoroscopy, the L3-4 interlaminar space was identified and the skin over this site was marked and then infiltrated with 1% lidocaine subcutaneously. Subsequently, a 20-gauge Tuohy epidural needle was inserted and advanced toward the epidural space using the ``Loss of resistance technique and guided by AP and lateral fluoroscopy. The correct needle position in the epidural space was verified with the injection of 2 mL of the water soluble contrast dye Isovue 200 contrast and observing an excellent epidurogram with the epidural spread of the dye, after negative aspiration for blood and CSF and in the absence of paresthesias. Again after negative aspiration, a 6 ml mixture containing 40 mg of Depo-medrol ( Preservetive Free ), and 2 ml of preservative free Normal Saline, and 2 ml of preservative free lidocaine 1% solution was injected and a washout of epidurogram was seen. Needle was withdrawn intact, skin was cleansed, and bandages were applied. COMPLICATIONS: None DISPOSITION / PLANS: The patient was placed in a supine position and transferred to the recovery area in a stable condition for observation. There was no evidence of lower extremity motor or sensory deficit after the procedure. Patient was discharged from the recovery room after meeting discharge criteria. Home discharge instructions were given to the patient by the staff. The patient was reexamined prior to discharge. The patient will schedule a follow up in the clinic in 2-4 weeks. PT= 11.9, INR 1.1
--- NOTE | 2024-06-28 09:36 | FL ---
EXAMINATION TYPE: FL guided pain mgmt statistic DATE OF EXAM: 06/28/2024 FLUOROSCOPY lumbar Epid Inj 4 sec Fluoro time .[id number] Shah One image submitted. [facility], , 06/28/2024 9:33 AM
[2024-06-28 10:12] VITALS: BP 125/73; PULSE 68; RESP 18
== END ==
LOC: ORPAIN 07:49
PROVIDERS: ATTEND Specialist
DX: M51.369 Other intervertebral disc degeneration, lumbar region without mention of lumbar back pain or lower extremity pain (principal); M96.1 Postlaminectomy syndrome, not elsewhere classified
CPT/HCPCS: 85610; 62323; Q9966; J1010

== ENCOUNTER → 2024-09-06 | Outpatient (CLI) | payer MEDICARE, BC ==
[2024-09-06 13:35] VITALS: BP 67/50; PULSE 70; RESP 19; TEMP 97.5
--- NOTE | 2024-09-06 15:08 | P.PAINPG ---
PQRS Measure Charge Sheet Comment: HISTORY OF PRESENT ILLNESS: A 74 yr old male w at side presents today w severe and chronic LBP > 5 yrs secondary to L4-L5 post laminectomy syndrome for evaluation s/p DOMINGA L3-L4 #1. Pt states he experienced 50 % pain relief x 1 mo s/p procedure. Pt states pain level is provoked at 6-7 /10 in intensity, constant, localized in the lower lumbar spine, predominantly axial, achy in character w occasional shooting pain towards the R hip and piriformis. Pain is provoked by standing/ walking for periods >15 min, and bending. Pain is alleviated by CHEKOIs from Dr Salinas in 2023, PT x 6 wks which ended in Mar 2024, physician guided home stretches daily since Mar 2024, heat, ice, medications, repositioning and rest . Interventional procedures include DOMINGA L3-L4 x1 Medications include Neurontin, Tyl, ASA, CBD Oil REVIEW OF ORGAN SYSTEMS: CONSTITUTIONAL: No fevers or chills. No recent weight loss. NEUROLOGICAL: + numbness and tingling along the distal extremities. No seizure disorders or headaches. MUSCULOSKELETAL: + pain PSYCHIATRIC: Denies current depression or suicidal thoughts. Physical Examinations : Constitutional : Cooperative , not in acute distress . Neurologic : Cranial nerve II to XII intact. No focal neurological deficits. Psychiatric : alert & oriented x 3. Matching mood & appropriate affect. Judgment & insight intact. Musculoskeletal : Cervical Spine Motor strength in the deltoid and biceps: Normal right side. Normal Left side Motor strength biceps and the wrist extensors: Normal right side . Normal left side Motor strength in the triceps muscle: Normal right side. Normal left side Deep tendon reflexes: Normal at the biceps. Normal at Brachioradialis. Normal at triceps Vertebral body tenderness to deep palpation over Cervical facet loading test: positive bilaterally Spurling test: positive bilaterally Neck distraction test: positive bilaterally Nabila sign: positive bilaterally Lumbar spine +Well Healed Incisional Scar Motor strength lower extremities ,thigh and legs 5/5 Right side , 5/5 Left side Deep tendon reflexes : Normal Knee Jerk. Normal Ankle Jerk Vertebral body tenderness over L3 Russell Test positive BL L3-L4 Taut bands w twitch response over L L3- S1/ L Piriformis Lumbar facet Loading Test: positive Right / positive Left Range of motion of the lumbar spine Flexion 30 degrees, extension 10 degrees Straight Leg Raise test: Left/ Right positive at degrees Milan test: positive right / positive left. Severe tenderness over the Sacroiliac joint on the Right / Left sides Gaenslen test: positive bilaterally Seated flexion test: positive bilaterally. Sacral spine : Severe tenderness over the Sacroiliac joint: right side / left side Range of motion: Flexion of the lumbar spine <60 degrees Range of motion: Extension of the lumbar spine <20 degrees Gaenslen's Test positive Milan test: positive right side / left side Thigh Thrust Test Sacral Thrust Test Imaging: CT non contrast lumbar spine from 03/12/24 reviewed Assessment/ Plan : L4-L5 Laminectomy syndrome Recommendation of L TPIs L3-S1/ L Piriformis #1. Risks, benefits of procedure discussed and patient verbalized understanding. Admits to anti- coagulant use or medical history of diabetes. Protocol for discontinuation/ continuation of medications valente procedure discussed. All questions answered. I have spent greater than 30 minutes on patient care today. Dr Mireles was available by phone for the evaluation of this patient. The time was used to review the medical records including relevant urine studies and Prescription history (MAPs), review of the available imaging, evaluation and examination of the patient, coordination of care with the medical staff and if applicable referring physicians, as well as creation of the medical record PQRS Narrative: Smoking Status Never smoker Narcotic Agreement Date Signed 06/07/24 Hx Alcohol Use (MH) No Home Medications: Ambulatory Orders Timolol [Betimol 0.5% Ophth Soln] 1 drop LEFT EYE DAILY 06/26/15 Digoxin [Lanoxin] 125 mcg PO HS 09/15/16 Ergocalciferol (Vitamin D2) [Drisdol (50,000 Iu)] 50,000 unit PO Q14D 10/22/19 Fenofibrate Nanocrystallized [Fenofibrate] 48 mg PO DAILY 10/22/19 metFORMIN HCL [Glucophage] 1,000 mg PO QAM 10/22/19 Gabapentin [Neurontin] 400 mg PO TID PRN 05/09/22 Insulin Glargine,Hum.rec.anlog [Lantus Solostar Pen] 50 units SQ QAM 05/09/22 Liraglutide [Victoza 3-Ruddy] 1.8 mg SQ DAILY 05/09/22 Metoprolol Succinate (ER) [Toprol XL] 50 mg PO QAM 30 Days #30 tab 05/11/22 Acetaminophen [Tylenol Extra Strength] 1,000 mg PO TID PRN 05/31/23 Empagliflozin [Jardiance] 25 mg PO HS 05/31/23 Omeprazole 20 mg PO QAM 05/31/23 Warfarin [Coumadin] 7.5 mg PO MOTUWEFRSA 05/31/23 Warfarin [Coumadin] 11.25 mg PO SUTH 05/31/23 Aspirin [Adult Low Dose Aspirin EC] 81 mg PO DAILY 03/12/24 Furosemide [Lasix] 20 mg PO DAILY 03/15/24 Spironolactone [Aldactone] 50 mg PO DAILY 03/15/24 Sacubitril/Valsartan [Entresto 24 mg-26 mg Tablet] 1 each PO BID #180 tablet 03/16/24 Controlled Substance Measures - Controlled Substance Measures Is patient prescribed a controlled substance at discharge?: No
== END ==
LOC: PNWHC3 12:45
PROVIDERS: ATTEND Specialist
DX: M96.1 Postlaminectomy syndrome, not elsewhere classified (principal); G89.29 Other chronic pain; Z88.8 Allergy status to other drugs, medicaments and biological substances
CPT/HCPCS: 99211

== ENCOUNTER → 2024-09-20 | Day surgery (SDC) | payer MEDICARE, BC ==
[~2024-09-20] MED LIST changes: -IOPAMIDOL M200 10 ML VIAL ONE; +ROPIVACAINE 5MG/ML 20ML VIAL ONE
[2024-09-20 08:00] VITALS: TEMP 97.3
[2024-09-20 08:12] LABS: Glucose,Whole Blood 204 mg/dL (70-110)
--- NOTE | 2024-09-20 08:28 | P.PCN ---
Date of Procedure: 09/20/24 Procedure(s) Performed: Procedure= trigger point injections left lumbar paraspinal muscles , left piriformis muscle injection, 4 on the left side from L2 to S1, and left piriformis muscle injection Preoperative diagnosis= 1-myofascial pain syndrome lumbar paraspinal muscles 2-left piriformis muscle syndrome . Postoperative diagnosis=Same as preop Diagnosis . Complication = none Condition= stable Anesthesia=none. Indication for the procedure= patient complaining of low back pain , examination was positive for multiple trigger point in the lumbar paraspinal muscles bilaterally and patient diagnosed with myofascial pain syndrome and is here to have trigger point injections Description of the procedure= procedure risk and benefits discussed with the patient, including but not limited, risk of infection and bleeding, and ALLERGIC reaction to the medication and not complete pain relief and patient agreed with the preceding patient taken to the operating room, placed in sitting position or standard monitors applied to the patient then after induction of anesthesia back prepped with chlorhexidine 3 times , then under sterile technique each of the trigger point that was marked in the preop holding area 4 on the left side lumbar paraspinal muscles each one of them injected with the 2 mL of the mixture of ropivacaine 0.5% 8 ML mixed with 40 mg of Depo-Medrol and 2 mL of the mixture injected at each trigger point after negative aspiration, using 25-gauge needle, injection done after negative aspiration ,and no paresthesia during the injection, and after that the left piriformis muscle injection done under sterile technique using 25-gauge needle for total of 4 cc injected in the left piriformis muscle area, injection done after negative aspiration the and there was no paresthesia during the injection, patient tolerated the procedure well without any complications and he will follow up in the pain clinic in a few weeks
[2024-09-20 08:35] VITALS: BP 104/68; PULSE 71; RESP 16
== END | disposition home or self-care (01) ==
LOC: ORPAIN 07:26
PROVIDERS: ATTEND Specialist
DX: M79.18 Myalgia, other site (principal); G57.02 Lesion of sciatic nerve, left lower limb; Z88.8 Allergy status to other drugs, medicaments and biological substances
CPT/HCPCS: 20553; J2795; J1010

== ENCOUNTER → 2024-11-07 | Outpatient (CLI) | payer MEDICARE, BC ==
[2024-11-07 16:30] LABS: INR 2.1 (<1.2); Partial Thromboplastin Time 28.3 sec (22.0-30.0); Prothrombin Time 21.4 sec (10.0-12.5)
[2024-11-07 18:36] LABS: HCT 47.8 % (39.6-50.0); HGB 15.8 g/dL (13.0-17.0); MCH 31.3 pg (27.0-32.0); MCHC 33.1 g/dL (32.0-37.0); MCV 94.8 FL (80.0-97.0); Mean Platelet Volume 10.3 FL (9.5-12.2); NRBC Per 100 WBC 0 X 10*3/uL (0.00-0.01); Platelet Count 265 X 10*3/uL (140-440); RBC 5.04 X 10*6/uL (4.40-5.60); RDW 14.6 % (11.5-14.5); WBC 10.57 X 10*3/uL (4.50-10.00)
[2024-11-07 21:44] LABS: ALT 18 U/L (10-49); AST 20 U/L (14-35); Albumin 4.3 g/dL (3.8-4.9); Albumin/Globulin Ratio 1.65 Ratio (1.60-3.17); Alkaline Phosphatase 118 U/L (41-126); Blood Urea Nitrogen 34.5 mg/dL (9.0-27.0); Calcium 9.4 mg/dL (8.7-10.3); Carbon Dioxide 24.8 mmol/L (21.6-31.8); Chloride 100 mmol/L (96-109); Globulin 2.6 g/dL (1.6-3.3); Glucose 154 mg/dL (70-110); Potassium 5.1 mmol/L (3.5-5.5); Sodium 137 mmol/L (135-145); Total Bilirubin 0.4 mg/dL (0.3-1.2); Total Protein 6.9 g/dL (6.2-8.2)
== END | disposition home or self-care (01) ==
LOC: LABPAT 15:03
PROVIDERS: ATTEND Orthopaedic Surgery
DX: Z01.812 Encounter for preprocedural laboratory examination (principal); Z22.322 Carrier or suspected carrier of Methicillin resistant Staphylococcus aureus; Z96.612 Presence of left artificial shoulder joint
CPT/HCPCS: 80053; 85027; 85610; 85730; 87070

== ENCOUNTER 2024-11-13 11:43 | Day surgery (SDC) | payer MEDICARE, BC ==
[2024-11-08 15:28] VITALS: BMI 27.5
[~2024-11-13 11:43] MED LIST changes: +ACETAMINOPHEN TAB 500 MG TAB PO PRN; -LACTATED RINGERS 1,000 ML IV SCH; -ROPIVACAINE 5MG/ML 20ML VIAL ONE; +TRANEXAMIC 1,000 MG/100ML-NACL 1,000 MG in SALINE 1 100ML.BAG IVPB PRN; -methylPREDNISolone ACETATE 40 MG/ML 1 ML VIAL ONE
[2024-11-13] MEDS: IV FLUID CONTINUATION 1,000 ML IV ONE ×2 (12:04→16:05)
[2024-11-13 12:34] LABS: Glucose,Whole Blood 197 mg/dL (70-110)
[2024-11-13] MEDS: MELOXICAM 7.5 MG TAB PO PRN (12:38)
[2024-11-13] MEDS: LACTATED RINGERS 1,000 ML IV SCH (12:39)
[2024-11-13] MEDS: GABAPENTIN 300 MG CAP PO PRN (12:39)
[2024-11-13] MEDS: ONDANSETRON 4 MG/2 ML VIAL IVP ONE (12:39)
[2024-11-13] MEDS: DEXAMETHASONE SOD PHOSPHATE 4 MG/ML 1 ML VIAL IV ONE (12:40)
[2024-11-13] MEDS: MIDAZOLAM 2 MG/2 ML VIAL IV PRN (12:57)
[2024-11-13 12:58] LABS: INR 1.1 (<1.2); Prothrombin Time 11.6 sec (10.0-12.5)
[2024-11-13] MEDS ORDERED: ONDANSETRON 4 MG/2 ML VIAL IVP PRN (13:06)
[2024-11-13] MEDS ORDERED: HYDROmorphone 0.5 MG/0.5 ML SYRINGE IVP PRN ×3 (13:06)
[2024-11-13] MEDS ORDERED: SENNOSIDES-DOCUSATE SODIUM 1 EACH TAB PO PRN (13:06)
[2024-11-13] MEDS ORDERED: PROPOFOL 10 MG/ML 20 ML VIAL IV ONE (13:37)
[2024-11-13] MEDS ORDERED: ROPIVACAINE 5 MG/ML 30 ML VIAL ONE (13:37)
[2024-11-13] MEDS: ceFAZolin 1,000 MG in SODIUM CHLORIDE 0.9% 1,000 ML IRRIGATION ONE (13:37)
[2024-11-13] MEDS ORDERED: SUCCINYLCHOLINE CHLORIDE 200 MG/10 ML VIAL IV ONE (13:37)
[2024-11-13] MEDS ORDERED: ROCURONIUM 10 MG/ML (5 ML VIAL) IV ONE (13:37)
[2024-11-13] MEDS ORDERED: ePHEDrine 50 MG/ML 1 ML VIAL ONE (13:37)
[2024-11-13] MEDS ORDERED: SUGAMMADEX SODIUM 100 MG/ML SYR IV ONE (13:37)
[2024-11-13] MEDS ORDERED: PHENYLEPHRINE 10 MG/ML VIAL ONE (13:37)
[2024-11-13] MEDS ORDERED: VASOPRESSIN 20 UNIT/ML 1 ML VIAL ONE (13:37)
[2024-11-13] MEDS ORDERED: fentaNYL (PF) 50 MCG/ML 2 ML AMP ONE (13:37)
[2024-11-13] MEDS ORDERED: LIDOCAINE 1% INJ 10MG/ML (20 ML MDV) ONE (13:37)
[2024-11-13] MEDS ORDERED: DEXAMETHASONE SOD PHOSPHATE 4 MG/ML 1 ML VIAL ONE (13:37)
[2024-11-13] MEDS ORDERED: TRANEXAMIC 1,000 MG/100ML-NACL PREMIX BAG ONE (13:37)
--- NOTE | 2024-11-13 14:11 | P.ANPRN ---
Procedure Note - Anesthesia - Nerve Block Performed Left Interscalene Single Time Out Performed: Yes Date of Procedure: 11/13/24 Procedure Start Time: 12:56 Procedure Stop Time: 13:01 Location of Patient: PreOp Indication: Acute Post-Operative Pain, Analgesia, Requested by Surgeon Sedation Type: Sedate with meaningful contact maintained Preparation: Sterile Prep Position: Sitting Catheter: None Needle Types: Pajunk Needle Gauge: 21 Ultrasound used to visualize needle placement: Yes Ultrasound used to observe medication spread: Yes Injectate: 0.5% Ropivacaine (see comment for volume) ([id number]) Blood Aspirated: No Pain Paresthesia on Injection Noted: No Resistance on Injection: Normal Image Stored and Saved: Yes Events: Uneventful and Well Tolerated
--- NOTE | 2024-11-13 14:24 | P.OP ---
Date of Procedure: 11/13/24 Preoperative Diagnosis: Recurrent dislocation, left reverse total shoulder arthroplasty Postoperative Diagnosis: Recurrent dislocation, left reverse total shoulder arthroplasty Procedure(s) Performed: Revision left reverse total shoulder arthroplasty Implants: Biomet comprehensive shoulder system, mini humeral stem, 14 mm porous-coated. Biomet comprehensive reverse shoulder system, humeral bearing, 36 mm, +3 retentive Biomet comprehensive reverse shoulder system, mini humeral tray, 40 mm, +0, standard Articulation is metal on polyethylene.Articulation is metal on polyethylene. Anesthesia: GETA Surgeon: Christiano Palomino Supervisor Residential #1: Shelyl Pandya Estimated Blood Loss (ml): 50 Pathology: none sent Condition: stable Disposition: PACU Indications for Procedure: This is a 74-year-old gentleman that had a reverse total shoulder arthroplasty on 10/16/2024. He subsequently dislocated his prosthesis and had a close reduction on the 2024. He proceeded to dislocate his shoulder. Again, I recommended a revision of his left reverse total shoulder arthroplasty. We discussed the surgical and nonsurgical treatment options at length and informed consent was obtained. Operative Findings: The operative findings are consistent with an unstable left reverse total shoulder arthroplasty. Description of Procedure: The patient was seen in the preoperative area, consent was reviewed, and operative site was marked with a skin marker. Patient was then brought to the operating room and given preoperative antibiotics intravenously. Patient was also given 1 g of Tranexamic acid intravenously. A general anesthetic was administered by the anesthesia department. The patient was then placed in a beachchair position with the bony prominences well-padded and the head secured. The shoulder was then prepped and draped in the usual sterile fashion. A universal timeout was then performed, which confirmed the patient's name, surgical site, ALLERGIES, and consent. A standard deltopectoral approach was performed. The skin and subcutaneous tissue was sharply incised using the prior incision. The cephalic vein was then identified and retracted medially. The deltopectoral interval was then utilized to expose the subscapularis tendon. The humeral head was then exposed easily. the glenohumeral joint was found to be grossly unstable was found to be easily located and dislocated with minimal effort. The proximal humerus was exposed, and the humeral bearing was easily removed. The humeral implant was then inspected and found to be well fixed. It did appear that the humeral stem subsided and set original surgery, but there was no evidence of any gross instability. The glenoid was then exposed. The glenoid sphere was evaluated and found to be intact. There was a large amount of soft tissue which may have become interposed with the reductions. The soft tissue was removed. Attention was then redirected to the humerus. Next a trial humeral tray was placed with a +3. Retention of liner. The shoulder was reduced. Shoulder was taken through a full range of motion and found to be stable. The shoulder was then gently dislocated, and the trial humerus and humeral tray were removed. The final humeral tray was impacted. Shoulder was then relocated. Again the shoulder was taken through a range of motion and found to have no instability. Shoulder was then irrigated with pulsatile lavage. The shoulder was then irrigated with Irrisept solution. A second dose of 1 g of Tranexamic acid was given. The deltopectoral interval was then closed with #1 Vicryl as well. The subcutaneous tissues were closed with 3-0 Vicryl then 3-0 monocryl. Exofin was placed on the skin. A sterile dressing was then applied, the patient was a john ulder mobilizer and then transported to the recovery room in an arm sling in stable condition. The clinic assistant CHANDA Donahue was required due the complexity of surgery and the need for a skilled certified surgical technician.
--- NOTE | 2024-11-13 15:19 | XR ---
EXAMINATION TYPE: XR shoulder limited LT DATE OF EXAM: 11/13/2024 3:11 PM COMPARISON: None. CLINICAL INDICATION: Male, 74 years old with history of postop, pain TECHNIQUE: XR shoulder limited LT views were obtained FINDINGS: Glenohumeral prosthesis appears to be well seated. Postsurgical soft tissue changes appreciated. Alig nment is near-anatomic. IMPRESSION: As above [facility], , 11/13/2024 3:17 PM
[2024-11-13] MEDS: HYDROmorphone 0.5 MG/0.5 ML SYRINGE IVP PRN (15:29)
[2024-11-13 15:46] LABS: Glucose,Whole Blood 191 mg/dL (70-110)
[2024-11-13] MEDS ORDERED: PHENYLEPHRINE-0.9% NACL SYG 1,000 MCG/10 ML SYRINGE IVP NR (16:30)
[2024-11-13] MEDS: PHENYLEPHRINE-0.9% NACL SYG 1,000 MCG/10 ML SYRINGE IVP ONE (16:44)
[2024-11-13 20:51] LABS: Glucose,Whole Blood 384 mg/dL (70-110)
[2024-11-13] MEDS: DIGOXIN 125 MCG TAB PO SCH (21:41)
[2024-11-13] MEDS: WARFARIN 7.5 MG TAB PO ONE (21:41)
[2024-11-13] MEDS: DAPAGLIFLOZIN PROPANEDIOL 10 MG TABLET PO SCH (21:41)
[2024-11-13] MEDS: INSULIN LISPRO (HumaLOG) 100 UNIT/ML 10 mL VL SQ SCH (21:51)
[2024-11-13] MEDS: HYDROcodone/APAP 5-325MG 1 EACH TAB PO PRN (23:17)
[2024-11-14 04:45] VITALS: PULSE 70; RESP 15
[2024-11-14 06:39] LABS: Glucose,Whole Blood 198 mg/dL (70-110)
[2024-11-14 07:28] LABS: Prothrombin Time 11.3 sec (10.0-12.5)
[2024-11-14 09:21] VITALS: BP 92/62; TEMP 97.7
[2024-11-14] MEDS: HYDROcodone/APAP 5-325MG 1 EACH TAB PO PRN (10:06)
[2024-11-14 10:29] LABS: Basophils # (A) 0.05 X 10*3/uL (0.00-0.10); Basophils % (A) 0.4 %; Eosinophils # (A) 0 X 10*3/uL (0.04-0.35); Eosinophils % (A) 0 %; HCT 45.3 % (39.6-50.0); Lymphocytes # (A) 1.15 X 10*3/uL (0.90-5.00); Lymphocytes % (A) 9.7 %; MCH 31.8 pg (27.0-32.0); MCHC 33.1 g/dL (32.0-37.0); Mean Platelet Volume 10.8 FL (9.5-12.2); Monocytes # (A) 1.18 X 10*3/uL (0.20-1.00); Monocytes % (A) 9.9 %; NRBC Per 100 WBC 0 X 10*3/uL (0.00-0.01); Neutrophils # (A) 9.39 X 10*3/uL (1.80-7.70); Neutrophils % (A) 78.9 %; Platelet Count 166 X 10*3/uL (140-440); RBC 4.72 X 10*6/uL (4.40-5.60); RDW 14.6 % (11.5-14.5)
--- NOTE | 2024-11-14 12:19 | P.DS ---
Providers Expected date of discharge: 11/14/24 Attending physician: Christiano Palomino Consults: 11/13/24 13:06 Consult Physician Routine Consulting Provider: Daren Damon Consult Reason/Comments: medical management Do you want consulting provider notified?: Yes Primary care physician: Nacho Cheek - Discharge Diagnosis(es) (1) Recurrent dislocation, left shoulder Current Visit: Yes Status: Acute (2) History of reverse total replacement of left shoulder joint Current Visit: Yes Status: Acute Hospital Course: This is a 74-year-old male who underwent reverse total shoulder arthroplasty on 10/16/2024. Patient presented as an outpatient and was found to have dislocated the left shoulder. Patient underwent closed reduction on 10/25/2024, but dislocated the left shoulder again. After discussion and consideration patient consents to proceed with revision reverse left total shoulder arthroplasty. The patient is seen preoperatively by Dr. Palomino and medically cleared for surgery by their primary care physician. Patient is admitted to [facility] on 11/13/2024 for revision reverse left total shoulder arthroplasty. The procedure is performed without complication or sequelae. The patient is doing well postoperatively. Labs and vital signs are stable on day of discharge. On day of discharge the patient's shoulder incision is healing well. There is minimal erythema. There is no drainage noted at this time. There is minimal soft tissue swelling to the shoulder. Patient has full hand and wrist motion without difficulty or pain. Neurovascular status to the left upper extremity is intact. Patient is discharged home in good condition. Please see med rec for accurate list of home medications. Plan - Discharge Summary Discharge Rx Participant: Yes New Discharge Prescriptions: New HYDROcodone/APAP 5-325MG [Baxter 5-325] 1 - 2 tab PO Q6HR PRN #32 tab PRN Reason: Pain Sennosides [Senokot] 2 tab PO DAILY PRN #60 tablet PRN Reason: Constipation No Action Timolol [Betimol 0.5% Ophth Soln] 1 drop LEFT EYE DAILY Digoxin [Lanoxin] 125 mcg PO HS Ergocalciferol (Vitamin D2) [Drisdol (50,000 Iu)] 50,000 unit PO Q14D Fenofibrate Nanocrystallized [Fenofibrate] 48 mg PO DAILY metFORMIN HCL [Glucophage] 1,000 mg PO QAM Gabapentin [Neurontin] 400 mg PO TID PRN PRN Reason: Pain Acetaminophen [Tylenol Extra Strength] 1,000 mg PO TID PRN PRN Reason: Pain Omeprazole 20 mg PO QAM Empagliflozin [Jardiance] 25 mg PO HS Aspirin [Adult Low Dose Aspirin EC] 81 mg PO DAILY Enoxaparin [Lovenox] 100 mg SQ Q12H Insulin Glargine,Hum.rec.anlog [Lantus Solostar Pen] 50 units SQ QAM Liraglutide [Victoza 3-Ruddy] 1.8 mg SQ DAILY Metoprolol Succinate (ER) [Toprol XL] 50 mg PO QAM 30 Days #30 tab Warfarin [Coumadin] 7.5 mg PO MOTUWEFRSA Warfarin [Coumadin] 11.25 mg PO SUTH Furosemide [Lasix] 20 mg PO DAILY Spironolactone [Aldactone] 50 mg PO DAILY Sacubitril/Valsartan [Entresto 97 mg-103 mg Tablet] 1 each PO BID HYDROcodone/APAP 7.5-325MG [Baxter 7.5-325] 1 - 2 tab PO Q6H PRN #32 tab PRN Reason: Pain Sennosides [Senokot] 2 tab PO DAILY PRN #60 tablet PRN Reason: Constipation Discharge Medication List Timolol [Betimol 0.5% Ophth Soln] 1 drop LEFT EYE DAILY 06/26/15 [History] Digoxin [Lanoxin] 125 mcg PO HS 09/15/16 [History] Ergocalciferol (Vitamin D2) [Drisdol (50,000 Iu)] 50,000 unit PO Q14D 10/22/19 [History] Fenofibrate Nanocrystallized [Fenofibrate] 48 mg PO DAILY 10/22/19 [History] metFORMIN HCL [Glucophage] 1,000 mg PO QAM 10/22/19 [History] Gabapentin [Neurontin] 400 mg PO TID PRN 05/09/22 [History] Insulin Glargine,Hum.rec.anlog [Lantus Solostar Pen] 50 units SQ QAM 05/09/22 [History] Liraglutide [Victoza 3-Ruddy] 1.8 mg SQ DAILY 05/09/22 [History] Metoprolol Succinate (ER) [Toprol XL] 50 mg PO QAM 30 Days #30 tab 05/11/22 [Rx] Acetaminophen [Tylenol Extra Strength] 1,000 mg PO TID PRN 05/31/23 [History] Empagliflozin [Jardiance] 25 mg PO HS 05/31/23 [History] Omeprazole 20 mg PO QAM 05/31/23 [History] Warfarin [Coumadin] 7.5 mg PO MOTUWEFRSA 05/31/23 [History] Warfarin [Coumadin] 11.25 mg PO SUTH 05/31/23 [History] Aspirin [Adult Low Dose Aspirin EC] 81 mg PO DAILY 03/12/24 [History] Furosemide [Lasix] 20 mg PO DAILY 03/15/24 [History] Spironolactone [Aldactone] 50 mg PO DAILY 03/15/24 [History] Sacubitril/Valsartan [Entresto 97 mg-103 mg Tablet] 1 each PO BID 09/19/24 [History] HYDROcodone/APAP 7.5-325MG [Baxter 7.5-325] 1 - 2 tab PO Q6H PRN #32 tab 10/16/24 [Rx] Sennosides [Senokot] 2 tab PO DAILY PRN #60 tablet 10/16/24 [Rx] Enoxaparin [Lovenox] 100 mg SQ Q12H 11/08/24 [History] HYDROcodone/APAP 5-325MG [Baxter 5-325] 1 - 2 tab PO Q6HR PRN #32 tab 11/13/24 [Rx] Sennosides [Senokot] 2 tab PO DAILY PRN #60 tablet 11/13/24 [Rx] Follow up Appointment(s)/Referral(s): Christiano Palomino DO [Doctor of Osteopathic Medicine] - 2 Weeks Activity/Diet/Wound Care/Special Instructions: Maintain arm sling. Dressing may be removed by home care nurse or by patient in 7 days. Then change dressing twice daily until follow up. May shower with initial dressing intact and after removal. If dressing become saturated, please remove. Please resume Coumadin. [facility] follow[facility]up with [facility] and call with any questions or concerns, . Discharge Disposition: HOME SELF-CARE
--- NOTE | 2024-11-14 13:13 | CONS ---
CONSULTATION REASON FOR CONSULTATION: Advice regarding diabetes mellitus and other medical issues, requested by Orthopedics. HISTORY OF PRESENT ILLNESS: This 74-year-old gentleman with a past history of diabetes mellitus, atrial fibrillation, underwent left shoulder arthroplasty. There is no history of fever or rigors. No chest pain, palpitation at this time. PAST MEDICAL HISTORY: Reviewed include diabetes mellitus, atrial fibrillation, rest of the chart and rest of the history is noted. HOME MEDICATION: Metformin. Dose and rest of medications noted. ALLERGIES: Pravastatin. FAMILY HISTORY: History of ovarian cancer. SOCIAL HISTORY: No history of smoking. Occasional alcohol. REVIEW OF SYSTEMS: Fourteen-point review is negative as mentioned. PHYSICAL EXAMINATION: VITAL SIGNS: Pulse is 70, blood pressure 92/62, and respirations 16. HEENT: Conjunctivae normal. NECK: No JVD. CARDIOVASCULAR: S1, S2 muffled. RESPIRATION: Breath sounds diminished at the bases. ABDOMEN: Soft and nontender. LEGS: No edema. No swelling. SHOULDER: Left shoulder arthroplasty. LABORATORY DATA: Reviewed. Glucose 384 and 198. ASSESSMENT: 1. Status post left shoulder arthroplasty. 2. Diabetes mellitus, type 2. 3. Congestive heart failure history. 4. History of atrial fibrillation. 5. Hyperlipidemia. RECOMMENDATIONS AND DISCUSSION: This 74-year-old gentleman presented after surgery, is medically stable. At this time, I recommend to continue the home medications. Monitor blood pressure closely. DVT prophylaxis. I would also recommend close outpatient followup and one of the blood sugars noted as high. I would recommend Accu-Cheks a.c. and h.s. after discharge and continue to monitor and follow up with primary physician in 1 to 2 weeks or p.r.n. MMODL / IJN: [id number] /
[2024-11-14] MEDS ORDERED: WARFARIN 7.5 MG TAB PO ONE (18:00)
== END 2024-11-14 13:43 | disposition home health service (06) ==
LOC: OR 11:43 → EDSTATUS 14:00 → 4SSUR 16:22 → OR 11-14 13:43
PROVIDERS: ATTEND Orthopaedic Surgery
DX: S43.005A Unspecified dislocation of left shoulder joint, initial encounter (principal); M24.412 Recurrent dislocation, left shoulder; Z47.1 Aftercare following joint replacement surgery; Z96.612 Presence of left artificial shoulder joint; Z79.899 Other long term (current) drug therapy
CPT/HCPCS: 64415; 80162; 85025; 85610 ×2; 73020; 23473; C1776; J2250; J1100; J0690 ×3; J2405; J1171; J2371

== ENCOUNTER 2025-02-05 07:12 | Day surgery (SDC) | payer MEDICARE, BC ==
[~2025-02-05 07:12] MED LIST changes: -ACETAMINOPHEN TAB 500 MG TAB PO PRN; +LACTATED RINGERS 1,000 ML IV SCH; -TRANEXAMIC 1,000 MG/100ML-NACL 1,000 MG in SALINE 1 100ML.BAG IVPB PRN
[2025-02-05 07:37] VITALS: TEMP 97
[2025-02-05 07:45] LABS: Glucose,Whole Blood 229 mg/dL (70-110)
[2025-02-05] MEDS ORDERED: ROPIVACAINE 5 MG/ML 30 ML VIAL ONE (08:10)
[2025-02-05] MEDS ORDERED: methylPREDNISolone ACETATE 80 MG/ML 1 ML VIAL ONE (08:10)
[2025-02-05 08:38] VITALS: RESP 16
[2025-02-05 08:58] VITALS: BP 110/79; PULSE 70
--- NOTE | 2025-02-05 09:35 | P.PCN ---
Description of Procedure: Procedure diagnosis. Myofascial pain of pyriformis muscle, lumbar paraspinal muscles. Postprocedure diagnosis. As above. Procedure done. 1. Left piriformis 2. Left lumbar paraspinal x 2 muscle trigger point injection with local anesthetic and steroid under ultrasound guidance. Anesthesia. Local infiltration 1% lidocaine 5 mL subcutaneously. Continuous pulse ox, EKG, blood pressure and verbal communication was maintained with the patient. Blood loss. None. Indication. Discussed with the patient procedures, alternatives and complications which may include infection, bleeding, nerve damage, paralysis, and also weakness of lower extremities secondary to sciatic nerve weakness which she usually temporary lasting up to 24 hours. Procedure note. After getting consent patient in OR in prone position. Buttock area was prepped with chlorhexidine and draped in sterile fashion. Upper border of greater trochanter identified and marked lateral border of the sacrum was identified and marked. Ultrasound probe was placed transversely from the top of greater trochanter up to the lateral border of the sacrum. Gluteus get and piriformis muscle was identified. Passive rotation of the hip joint helped to identify pyriformis muscle by its extension and flexion. After injecting 3 mL of 1% lidocaine subcutaneously a 21-gauge pageant needle was introduced from medial to lateral in the long axis of the ultrasound probe in to the piriformis muscle body. Total of 4 mL solution injected into the pyriformis muscle body away from the sciatic nerve. The solution consists of 3 cc of 0.5% ropivacaine mixed with 1 cc of 40 mg Depo-Medrol. Most tender points were identified and marked. A 25-gauge needle attached to syringe was introduced at the trigger points and after negative aspiration 2.5 mL solution are injected at each trigger point. I injected 2 trigger points in left lumber paraspinal muscles. Total solution consists of 4 ml 0.5%Ropivacaine mixed with 1 ml of40 mg Depomedrol. Disposition. Patient tolerated the procedure well. No complication. In the recovery room patient was checked for any weakness of sciatic nerve distribution.
== END 2025-02-05 09:32 | disposition home or self-care (01) ==
LOC: ORPAIN 07:12
PROVIDERS: ATTEND Pain Medicine Interventional Pain Medicine
DX: M79.18 Myalgia, other site (principal); M54.16 Radiculopathy, lumbar region; I48.91 Unspecified atrial fibrillation; I10 Essential (primary) hypertension; E11.9 Type 2 diabetes mellitus without complications; Z79.84 Long term (current) use of oral hypoglycemic drugs; Z79.01 Long term (current) use of anticoagulants; Z79.82 Long term (current) use of aspirin
CPT/HCPCS: 20553; J2795; J1010; 20552

== ENCOUNTER → 2025-02-20 | Outpatient (CLI) | payer MEDICARE, BC ==
[2025-02-20 11:25] VITALS: BP 98/55; PULSE 66; RESP 18
--- NOTE | 2025-02-20 16:14 | P.PAINPG ---
PQRS Measure Charge Sheet Comment: HISTORY OF PRESENT ILLNESS: A 75 yr old male w at side presents today w severe and chronic LBP > 5 yrs secondary to L4-L5 post laminectomy syndrome for evaluation s/p L L2-S1 TPI piriformis #1. Pt states he experienced 80 % pain relief x 2 wks s/p procedure. Pt states pain level is provoked at 6 /10 in intensity, intermittent, localized in the lower lumbar spine, predominantly axial, achy in character w occasional shooting pain towards the L hip and piriformis. Pain is provoked by climbing stairs. Pain is alleviated by PT x 6 wks which ended in Mar 2024, physician guided home stretches daily since Mar 2024, heat, ice, medications, use of a cane for ambulatory assistance, repositioning and rest . Interventional procedures include DOMINGA L3-L4 x1, TPIs L2-S1 x1, L L2-S1 TPI piriformis x1 (02/20) Medications include Neurontin, Tyl, ASA, CBD Oil REVIEW OF ORGAN SYSTEMS: CONSTITUTIONAL: No fevers or chills. No recent weight loss. NEUROLOGICAL: + numbness and tingling along the distal extremities. No seizure disorders or headaches. MUSCULOSKELETAL: + pain PSYCHIATRIC: Denies current depression or suicidal thoughts. Physical Examinations : Constitutional : Cooperative , not in acute distress . Neurologic : Cranial nerve II to XII intact. No focal neurological deficits. Psychiatric : alert & oriented x 3. Matching mood & appropriate affect. Judgment & insight intact. Musculoskeletal : Cervical Spine Motor strength in the deltoid and biceps: Normal right side. Normal Left side Motor strength biceps and the wrist extensors: Normal right side . Normal left side Motor strength in the triceps muscle: Normal right side. Normal left side Deep tendon reflexes: Normal at the biceps. Normal at Brachioradialis. Normal at triceps Vertebral body tenderness to deep palpation over Cervical facet loading test: positive bilaterally Spurling test: positive bilaterally Neck distraction test: positive bilaterally Nabila sign: positive bilaterally Lumbar spine +Well Healed Incisional Scar Motor strength lower extremities ,thigh and legs 5/5 Right side , 5/5 Left side Deep tendon reflexes : Normal Knee Jerk. Normal Ankle Jerk Vertebral body tenderness over L3 Russell Test positive BL L3-L4 Taut bands w twitch response over L L3- S1/ L Piriformis Lumbar facet Loading Test: positive Right / positive Left Range of motion of the lumbar spine Flexion 30 degrees, extension 10 degrees Straight Leg Raise test: Left/ Right positive at degrees Milan test: positive right / positive left. Severe tenderness over the Sacroiliac joint on the Right / Left sides Gaenslen test: positive bilaterally Seated flexion test: positive bilaterally. Sacral spine : Severe tenderness over the Sacroiliac joint: right side / left side Range of motion: Flexion of the lumbar spine <60 degrees Range of motion: Extension of the lumbar spine <20 degrees Gaenslen's Test positive Milan test: positive right side / left side Thigh Thrust Test Sacral Thrust Test Imaging: CT non contrast lumbar spine from 03/12/24 reviewed Assessment/ Plan : L4-L5 Laminectomy syndrome Recommendation of L L2-S1 TPI piriformis #2. Risks, benefits of procedure discussed and patient verbalized understanding. All questions answered. I have spent greater than 30 minutes on patient care today. Dr Mireles was available by phone for the evaluation of this patient. The time was used to review the medical records including relevant urine studies and Prescription history (MAPs), review of the available imaging, evaluation and examination of the patient, coordination of care with the medical staff and if applicable referring physicians, as well as creation of the medical record - Pain Location Lower Back Pharmacological Interventions: Medication PQRS Narrative: Smoking Status Never smoker Narcotic Agreement Date Signed 09/06/24 Hx Alcohol Use (MH) No Home Medications: Ambulatory Orders Timolol [Betimol 0.5% Ophth Soln] 1 drop LEFT EYE DAILY 06/26/15 Digoxin [Lanoxin] 125 mcg PO HS 09/15/16 Ergocalciferol (Vitamin D2) [Drisdol (50,000 Iu)] 50,000 unit PO Q14D 10/22/19 Fenofibrate Nanocrystallized [Fenofibrate] 48 mg PO DAILY 10/22/19 metFORMIN HCL [Glucophage] 1,000 mg PO QAM 10/22/19 Gabapentin [Neurontin] 400 mg PO TID PRN 05/09/22 Insulin Glargine,Hum.rec.anlog [Lantus Solostar Pen] 50 units SQ QAM 05/09/22 Liraglutide [Victoza 3-Ruddy] 1.8 mg SQ DAILY 05/09/22 Metoprolol Succinate (ER) [Toprol XL] 50 mg PO QAM 30 Days #30 tab 05/11/22 Acetaminophen [Tylenol Extra Strength] 1,000 mg PO TID PRN 05/31/23 Omeprazole 20 mg PO QAM 05/31/23 Warfarin [Coumadin] 7.5 mg PO MOTUWEFRSA 05/31/23 Warfarin [Coumadin] 11.25 mg PO SUTH 05/31/23 Aspirin [Adult Low Dose Aspirin EC] 81 mg PO DAILY 03/12/24 Furosemide [Lasix] 20 mg PO DAILY 03/15/24 Spironolactone [Aldactone] 50 mg PO DAILY 03/15/24 Sacubitril/Valsartan [Entresto 97 mg-103 mg Tablet] 1 each PO BID 09/19/24 Controlled Substance Measures - Controlled Substance Measures Is patient prescribed a controlled substance at discharge?: No
== END ==
LOC: PNWHC3 10:28
PROVIDERS: ATTEND Specialist
DX: M96.1 Postlaminectomy syndrome, not elsewhere classified (principal); Z88.8 Allergy status to other drugs, medicaments and biological substances
CPT/HCPCS: 99212

== ENCOUNTER → 2025-03-28 | Day surgery (SDC) | payer MEDICARE, BC ==
[2025-03-27 09:01] VITALS: BMI 27.8
[~2025-03-28] MED LIST changes: +ROPIVACAINE 5 MG/ML 30 ML VIAL ONE; +methylPREDNISolone ACETATE 40 MG/ML 1 ML VIAL ONE
[2025-03-28 13:25] VITALS: TEMP 97.1
[2025-03-28 13:33] LABS: Glucose,Whole Blood 190 mg/dL (70-110)
--- NOTE | 2025-03-28 14:16 | P.PCN ---
Date of Procedure: 03/28/25 Procedure(s) Performed: Procedure diagnosis. Myofascial pain of pyriformis muscle, lumbar paraspinal muscles. Postprocedure diagnosis. As above. Procedure done. 1. Left piriformis 2. Left lumbar paraspinal x 2 muscle trigger point injection with local anesthetic and steroid under ultrasound guidance. Anesthesia. Local infiltration 1% lidocaine 5 mL subcutaneously. Continuous pulse ox, EKG, blood pressure and verbal communication was maintained with the patient. Blood loss. None. Indication. Discussed with the patient procedures, alternatives and complications which may include infection, bleeding, nerve damage, paralysis, and also weakness of lower extremities secondary to sciatic nerve weakness which she usually temporary lasting up to 24 hours. Procedure note. After getting consent patient in OR in prone position. Buttock area was prepped with chlorhexidine and draped in sterile fashion. Upper border of greater trochanter identified and marked lateral border of the sacrum was identified and marked. Ultrasound probe was placed transversely from the top of greater trochanter up to the lateral border of the sacrum. Gluteus get and piriformis muscle was identified. Passive rotation of the hip joint helped to identify pyriformis muscle by its extension and flexion. After injecting 3 mL of 1% lidocaine subcutaneously a 21-gauge pageant needle was introduced from medial to lateral in the long axis of the ultrasound probe in to the piriformis muscle body. Total of 4 mL solution injected into the pyriformis muscle body away from the sciatic nerve. The solution consists of 5 cc of 0.5% ropivacaine mixed with 1 cc of 40 mg Depo-Medrol. Most tender points were identified and marked. A 25-gauge needle attached to syringe was introduced at the trigger points and after negative aspiration 2.5 mL solution are injected at each trigger point. I injected 2 trigger points in left buttock muscles. Disposition. Patient tolerated the procedure well. No complication. In the recovery room patient was checked for any weakness of sciatic nerve distribution.
[2025-03-28 14:23] VITALS: RESP 16
[2025-03-28 14:44] VITALS: BP 97/63; PULSE 74
== END ==
LOC: ORPAIN 12:32
PROVIDERS: ATTEND Specialist
DX: G57.02 Lesion of sciatic nerve, left lower limb (principal); M79.18 Myalgia, other site
CPT/HCPCS: 20553